=== PATIENT | female | born 1995 | race Caucasian/White ===

== ENCOUNTER 2016-12-25 21:04 | Emergency (ER) | payer OTHER ==
[2016-12-25 21:07] VITALS: RESP 18
[2016-12-25] MEDS ORDERED: KETOROLAC 30 MG/ML 1 ML VIAL IVP STA (21:18)
[2016-12-25] MEDS ORDERED: SODIUM CHLORIDE 0.9% 1,000 ML IV STA (21:18)
[2016-12-25] MEDS ORDERED: diphenhydrAMINE 50 MG/ML 1 ML VIAL IVP STA (21:18)
[2016-12-25] MEDS ORDERED: METOCLOPRAMIDE 5 MG/ML 2 ML VIAL IVP STA (21:18)
[2016-12-25] MEDS ORDERED: ACETAMINOPHEN TAB 500 MG TAB PO STA (21:18)
[2016-12-25] MEDS ORDERED: methylPREDNISolone SOD SUCCI 125 MG/2 ML VIAL IV STA (21:19)
[2016-12-25] MEDS ORDERED: ORPHENADRINE 30 MG/ML 2 ML VIAL IVP STA (21:19)
--- NOTE | 2016-12-25 21:48 | ED ---
Headache HPI - General Chief Complaint: Headache Stated Complaint: Migraine, blurred vision Time Seen by Provider: 12/25/16 21:10 Source: RN notes reviewed, old records reviewed Mode of arrival: ambulatory Limitations: no limitations - History of Present Illness Initial Comments: 21-year-old female presents emergency Department chief complaint of migraine- like headache for the past 2 days. Patient reports she has pain behind both of her eyes. She states that she did wake up of blurry vision but that seems to have subsided at this time, she complains of episodic double vision.. Patient states that she's had history of migraines before. When tip urgent care stay was discharged with Imitrex. She reports she's been taking Imitrex with no help from the migraine. Patient states that she feels nauseated. Headache is worse with bright lights. Denies any pain with extraocular eye movements. Patient states that she is and chilled denies any specific fever. Denies any neck pain. - Related Data Home Medications Medication Instructions Recorded Confirmed SUMAtriptan SUCCINATE [Imitrex] 50 mg PO BID PRN 12/25/16 12/25/16 Sertraline [Zoloft] 50 mg PO HS 12/25/16 12/25/16 Previous Rx's Medication Instructions Recorded Butalb/APAP/Caff 50-325-40Mg 1 tab PO Q4H PRN #12 tablet 12/25/16 [Fioricet 50-325-40] Ondansetron Odt [Zofran Odt] 4 mg PO Q8HR PRN #12 tab 12/25/16 Allergies Allergy/AdvReac Type Severity Reaction Status Date / Time bee venom protein (honey bee) Allergy Facial Verified 12/25/16 21:46 Swelling Review of Systems ROS Statement: Those systems with pertinent positive or pertinent negative responses have been documented in the HPI. ROS Other: All systems not noted in ROS Statement are negative. Past Medical History Past Medical History: Asthma Additional Past Medical History / Comment(s): Obstetric history: First was a vaginal delivery 6 lbs. 7 oz. at 37 weeks. 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 This is her sixth . She's had care with Dr. Thompson since 10 weeks gestation. Her blood type is O+, antibodies negative, rubella immune, hepatitis B negative, RPR nonreactive. She is getting migraines with the was on the uterus that. Normal 1 hour glucose tolerance test. GBS negative. History of Any Multi-Drug Resistant Organisms: None Reported Additional Past Surgical History / Comment(s): leep Past Anesthesia/Blood Transfusion Reactions: No Reported Reaction Past Psychological History: Anxiety, Depression Smoking Status: Never smoker Past Alcohol Use History: None Reported Past Drug Use History: None Reported - Past Family History Father History Unknown: Yes General Exam - General Exam Comments Initial Comments: 21-year-old female. No acute distress. Limitations: no limitations General appearance: alert, in no apparent distress Head exam: Present: atraumatic, normocephalic, normal inspection Eye exam: Present: normal appearance, PERRL, EOMI. Absent: scleral icterus, conjunctival injection, periorbital swelling ENT exam: Present: normal exam, mucous membranes moist Neck exam: Present: normal inspection. Absent: tenderness, meningismus, lymphadenopathy Respiratory exam: Present: normal lung sounds bilaterally. Absent: respiratory distress, wheezes, rales, rhonchi, stridor Cardiovascular Exam: Present: regular rate, normal rhythm, normal heart sounds. Absent: systolic murmur, diastolic murmur, rubs, gallop, clicks GI/Abdominal exam: Present: soft, normal bowel sounds. Absent: distended, tenderness, guarding, rebound, rigid Extremities exam: Present: normal inspection, full ROM, normal capillary refill. Absent: tenderness, pedal edema, joint swelling, calf tenderness Back exam: Present: normal inspection Neurological exam: Present: alert, oriented X3, CN II-XII intact Psychiatric exam: Present: normal affect, normal mood Skin exam: Present: warm, dry, intact, normal color. Absent: rash Course Vital Signs 12/25/16 12/25/16 21:05 23:59 Temperature 98.6 F 97.1 F L Pulse Rate 70 55 L Respiratory 18 18 Rate Blood Pressure 118/72 108/58 O2 Sat by Pulse 97 97 Oximetry - Reevaluation(s) Reevaluation #1: 12/25/16 22:17 Patient was reevaluated at time. She reports her headache is diminished at all. CT will be ordered. Medical Decision Making - Medical Decision Making 21-year-old female presents emergency Department chief complaint of migraine- like headache for the past 2 days. Patient reports she has pain behind both of her eyes. She states that she did wake up of blurry vision but that seems to have subsided at this time, she complains of episodic double vision.. Patient states that she's had history of migraines before. This time patient is neurologically intact. Patient has full range of motion without jugular eye movements. Visual acuity is 20/25 in bilateral eyes. Patient was given IV fluids, and Norflex, Toradol, Tylenol, Solu-Medrol and Benadryl. Patient had very little improvement of her headache. At times CT brain with and without contrast was completed. There is no significant maladies no changes noted of bilateral orbits. At this time patient will be discharged with a prescription for Fioricet. Discussed that she can also obtain Fiorecet and Imitrex. Discussed if the headache continues to persist or worsen she should return to the emergency department. Patient is given a note for work. Return parameters were discussed. - Lab Data Result diagrams: 12/25/16 21:40 12/25/16 21:40 Lab Results 12/25/16 12/25/16 12/25/16 Range/Units 21:40 21:40 21:40 WBC 4.2 (3.8-10.6) k/uL RBC 4.72 (3.80-5.40) m/uL Hgb 14.0 (11.4-16.0) gm/dL Hct 42.1 (34.0-46.0) % MCV 89.2 (80.0-100.0) fL MCH 29.7 (25.0-35.0) pg MCHC 33.4 (31.0-37.0) g/dL RDW 12.2 (11.5-15.5) % Plt Count 125 L (150-450) k/uL Neutrophils % 58 % Lymphocytes % 32 % Monocytes % 6 % Eosinophils % 1 % Basophils % 0 % Neutrophils # 2.5 (1.3-7.7) k/uL Lymphocytes # 1.4 (1.0-4.8) k/uL Monocytes # 0.3 (0-1.0) k/uL Eosinophils # 0.0 (0-0.7) k/uL Basophils # 0.0 (0-0.2) k/uL Sodium 139 (137-145) mmol/L Potassium 4.0 (3.5-5.1) mmol/L Chloride 107 (98-107) mmol/L Carbon Dioxide 21 L (22-30) mmol/L Anion Gap 11 mmol/L BUN 15 (7-17) mg/dL Creatinine 0.90 (0.52-1.04) mg/dL Est GFR (MDRD) Af Amer >60 (>60 ml/min/1.73 sqM) Est GFR (MDRD) Non-Af >60 (>60 ml/min/1.73 sqM) Glucose 90 (74-99) mg/dL Calcium 9.4 (8.4-10.2) mg/dL HCG, Qual Not Detected - Radiology Data Radiology results: report reviewed Normal CT of the brain. No overt changes compared on exam. Disposition Clinical Impression: Migraine with aura Disposition: HOME SELF-CARE Condition: Good Instructions: Acute Headache (ED) Additional Instructions: Patient advised to follow-up with primary care provider. Take pain medicine as well as Imitrex as prescribed. Return to the emergency department if any alarming signs or symptoms occur. Recommend follow-up with neurology as well. Prescriptions: Butalb/APAP/Caff 50-325-40Mg [Fioricet 50-325-40] 1 tab PO Q4H PRN #12 tablet PRN Reason: Migraine Headache Ondansetron Odt [Zofran Odt] 4 mg PO Q8HR PRN #12 tab PRN Reason: Nausea Referrals: Sudha Muro MD [Primary Care Provider] - 1-2 days Time of Disposition: 23:42
[2016-12-25 22:10] LABS: Basophils % (A) 0 %; CH 29.3; Eosinophils % (A) 1 %; HCT 42.1 % (34.0-46.0); HDW 2.39; Luc # (Auto) 0.11; Luc % (Auto) 3; Lymphocytes # (A) 1.4 k/uL (1.0-4.8); Lymphocytes % (A) 32 %; MCH 29.7 pg (25.0-35.0); MCHC 33.4 g/dL (31.0-37.0); MCV 89.2 fL (80.0-100.0); Monocytes # (A) 0.3 k/uL (0-1.0); Monocytes % (A) 6 %; Neutrophils # (A) 2.5 k/uL (1.3-7.7); Neutrophils % (A) 58 %; RBC 4.72 m/uL (3.80-5.40); RDW 12.2 % (11.5-15.5); WBC 4.2 k/uL (3.8-10.6); WBC (Perox) 4.14
[2016-12-25 22:15] LABS: Anion Gap 11 mmol/L; Blood Urea Nitrogen 15 mg/dL (7-17); Calcium 9.4 mg/dL (8.4-10.2); Carbon Dioxide 21 mmol/L (22-30); Chloride 107 mmol/L (98-107); Glucose 90 mg/dL (74-99); Non-African American GFR(MDRD) >60 (>60 ml/min/1.73 sqM); Sodium 139 mmol/L (137-145)
[2016-12-25] MEDS ORDERED: RX INFO: IV CONTRAST WAS GIVEN 1 EACH MISC MISCELLANE PRN (22:17)
--- NOTE | 2016-12-25 22:55 | CT ---
EXAMINATION TYPE: CT brain wo/w con DATE OF EXAM: 12/25/2016 COMPARISON: NONE HISTORY: History of migraines. Migraine today with blurred vision. CT DLP: 2017.70 mGycm Automated Exposure Control for Dose Reduction was Utilized. TECHNIQUE: CT scan of the head is performed with IV contrast.,CT scan of the head is performed withou t and with without and with IV Contrast, patient injected with 100 mL of Omnipaque 300. COMPARISON: 07/12/2013 FINDINGS: The ventricles have normal size. There is no mass effect nor midline shift. There is no si gn of intracranial hemorrhage. The calvarium is intact. I see no pathologic enhancement. CONCLUSION: Normal CT scan of the brain. No adverse change compared to old exam.
[2016-12-25] MEDS ORDERED: MORPHINE SULFATE 2 MG/ML SYRINGE IVP ONE (23:28)
[2016-12-26] VITALS: BP 108/58; PULSE 55; TEMP 97.1
== END 2016-12-26 | disposition home or self-care (01) ==
LOC: EC 21:04
DX: G43.109 Migraine with aura, not intractable, without status migrainosus (principal); F32.9 Major depressive disorder, single episode, unspecified; F41.9 Anxiety disorder, unspecified; Z79.899 Other long term (current) drug therapy; Z91.030 Bee allergy status
CPT/HCPCS: 96375 ×6; 96361 ×3; 96374 ×2; 99284 ×2; 36415; 80048; 85025; 84703; 70470; J1200; J2360; J2765; J2930; J1885; J2270; Q9967

== ENCOUNTER → 2017-07-30 | Outpatient (CLI) | payer OTHER ==
--- NOTE | 2017-07-30 12:56 | CT ---
EXAMINATION TYPE: CT soft tissue neck w con DATE OF EXAM: 07/30/2017 12:39 PM COMPARISON: NONE HISTORY: Dysphagia and Pharyngitis CT DLP: 293.10 mGycm Automated exposure control for dose reduction was used. CONTRAST: CT scan of the neck is performed following with IV Contrast, patient injected with 100 ml mL of Isovu e 300. Axial images are obtained, coronal and sagittal reformatted images are reviewed. FINDINGS: Airway: No gross abnormality seen. Some mild prominence of the adenoidal soft tissues suspected. Parotid/submandibular glands: No gross abnormality seen. Carotid/Vascular Structures: Patent Osseous Structures: No significant abnormality. Other: No significant subcutaneous edema. No evident abscess. IMPRESSION: Nonspecific findings described above.
== END | disposition home or self-care (01) ==
LOC: RADCTMAIN 11:24
PROVIDERS: ATTEND Family Medicine
DX: R13.13 Dysphagia, pharyngeal phase (principal); J02.9 Acute pharyngitis, unspecified
CPT/HCPCS: 70491; Q9967

== ENCOUNTER 2017-08-01 09:57 | Emergency (ER) | payer OTHER ==
--- NOTE | 2017-08-01 11:57 | ED ---
General Adult HPI - General Chief complaint: ENT Stated complaint: Sore throat Source: patient, RN notes reviewed, old records reviewed Mode of arrival: ambulatory Limitations: no limitations - History of Present Illness Initial comments: A 21-year-old female the ER for evaluation of sore throat pain with swallowing. Patient has no specific medical history she is concern for thyroid disease. has symptoms of painful swallowing, sore throat 2 weeks. She has had outpatient CAT scan which she states was unremarkable. She was given antibiotic which did not help. Patient continues remain with sore throat and difficulty swallowing. No fevers or if patient states she is able to eat but again when she does swallow it is painful - Related Data Home Medications Medication Instructions Recorded Confirmed Sertraline [Zoloft] 100 mg PO HS 08/01/17 08/01/17 Topiramate [Topamax] 25 mg PO HS 08/01/17 08/01/17 Allergies Allergy/AdvReac Type Severity Reaction Status Date / Time bee venom protein (honey bee) Allergy Facial Verified 08/01/17 10:09 Swelling Review of Systems ROS Statement: Those systems with pertinent positive or pertinent negative responses have been documented in the HPI. ROS Other: All systems not noted in ROS Statement are negative. Past Medical History Past Medical History: Asthma Additional Past Medical History / Comment(s): Obstetric history: First was a vaginal delivery 6 lbs. 7 oz. at 37 weeks. 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 This is her sixth . She's had care with Dr. Thompson since 10 weeks gestation. Her blood type is O+, antibodies negative, rubella immune, hepatitis B negative, RPR nonreactive. She is getting migraines with the was on the uterus that. Normal 1 hour glucose tolerance test. GBS negative. History of Any Multi-Drug Resistant Organisms: None Reported Additional Past Surgical History / Comment(s): leep Past Anesthesia/Blood Transfusion Reactions: No Reported Reaction Past Psychological History: Anxiety, Depression Smoking Status: Never smoker Past Alcohol Use History: None Reported Past Drug Use History: None Reported - Past Family History Father History Unknown: Yes General Exam Limitations: no limitations General appearance: alert, in no apparent distress Head exam: Present: atraumatic, normocephalic, normal inspection Eye exam: Present: normal appearance, PERRL, EOMI. Absent: scleral icterus, conjunctival injection, periorbital swelling ENT exam: Present: normal exam, mucous membranes moist Neck exam: Present: normal inspection. Absent: tenderness, meningismus, lymphadenopathy Respiratory exam: Present: normal lung sounds bilaterally. Absent: respiratory distress, wheezes, rales, rhonchi, stridor Cardiovascular Exam: Present: regular rate, normal rhythm, normal heart sounds. Absent: systolic murmur, diastolic murmur, rubs, gallop, clicks GI/Abdominal exam: Present: soft, normal bowel sounds. Absent: distended, tenderness, guarding, rebound, rigid Extremities exam: Present: normal inspection, full ROM, normal capillary refill. Absent: tenderness, pedal edema, joint swelling, calf tenderness Back exam: Present: normal inspection Neurological exam: Present: alert, oriented X3, CN II-XII intact Psychiatric exam: Present: normal affect, normal mood Skin exam: Present: warm, dry, intact, normal color. Absent: rash Course Vital Signs 08/01/17 08/01/17 09:59 14:02 Temperature 97.1 F L 98.1 F Pulse Rate 88 74 Respiratory 20 18 Rate Blood Pressure 116/72 113/66 O2 Sat by Pulse 98 98 Oximetry - Reevaluation(s) Reevaluation #1: 08/01/17 11:57 Prior CAT scan of the throat is reviewed Medical Decision Making - Medical Decision Making 21 female the ER for evaluation, negative results here in the ER, patient was concerned thyroid thyroid is negative, barium swallow is negative patient outpatient computed tomography scan is also negative, will follow-up with GI - Lab Data Result diagrams: 08/01/17 11:55 08/01/17 11:55 Lab Results 08/01/17 08/01/17 08/01/17 Range/Units 11:55 11:55 11:55 WBC 2.1 L (3.8-10.6) k/uL RBC 4.46 (3.80-5.40) m/uL Hgb 12.9 (11.4-16.0) gm/dL Hct 36.9 (34.0-46.0) % MCV 82.6 (80.0-100.0) fL MCH 28.9 (25.0-35.0) pg MCHC 35.0 (31.0-37.0) g/dL RDW 12.4 (11.5-15.5) % Plt Count 117 L (150-450) k/uL Neutrophils % (Manual) 30 % Band Neutrophils % 1 % Lymphocytes % (Manual) 55 % Monocytes % (Manual) 14 % Eosinophils % (Manual) 1 % Neutrophils # (Manual) 0.60 L (1.3-7.7) k/uL Lymphocytes # (Manual) 1.16 (1.0-4.8) k/uL Monocytes # (Manual) 0.29 (0-1.0) k/uL Eosinophils # (Manual) 0.02 (0-0.7) k/uL Nucleated RBCs 0 (0-0) /100 WBC Manual Slide Review Performed RBC Morphology Normal Sodium 144 (137-145) mmol/L Potassium 4.2 (3.5-5.1) mmol/L Chloride 108 H (98-107) mmol/L Carbon Dioxide 23 (22-30) mmol/L Anion Gap 13 mmol/L BUN 12 (7-17) mg/dL Creatinine 0.70 (0.52-1.04) mg/dL Est GFR (CKD-EPI)AfAm >90 (>60 ml/min/1.73 sqM) Est GFR (CKD-EPI)NonAf >90 (>60 ml/min/1.73 sqM) Glucose 97 (74-99) mg/dL Calcium 9.5 (8.4-10.2) mg/dL Phosphorus 3.3 (2.5-4.5) mg/dL Magnesium 1.8 (1.6-2.3) mg/dL Total Bilirubin 0.5 (0.2-1.3) mg/dL AST 21 (14-36) U/L ALT 23 (9-52) U/L Alkaline Phosphatase 40 (38-126) U/L Total Protein 6.4 (6.3-8.2) g/dL Albumin 3.9 (3.5-5.0) g/dL TSH (0.465-4.680) mIU/L Urine Color Yellow Urine Appearance Clear (Clear) Urine pH 7.5 (5.0-8.0) Ur Specific [place] 1.011 (1.001-1.035) Urine Protein Negative (Negative) Urine Glucose (UA) Negative (Negative) Urine Ketones Negative (Negative) Urine Blood Negative (Negative) Urine Nitrite Negative (Negative) Urine Bilirubin Negative (Negative) Urine Urobilinogen 2.0 (<2.0) mg/dL Ur Leukocyte Esterase Moderate H (Negative) Urine RBC 1 (0-5) /hpf Urine WBC 16 H (0-5) /hpf Ur Squamous Epith Cells 4 (0-4) /hpf Urine Bacteria Occasional H (None) /hpf Urine Mucus Rare H (None) /hpf Urine HCG, Qual (Not Detectd) 08/01/17 08/01/17 Range/Units 11:55 11:55 WBC (3.8-10.6) k/uL RBC (3.80-5.40) m/uL Hgb (11.4-16.0) gm/dL Hct (34.0-46.0) % MCV (80.0-100.0) fL MCH (25.0-35.0) pg MCHC (31.0-37.0) g/dL RDW (11.5-15.5) % Plt Count (150-450) k/uL Neutrophils % (Manual) % Band Neutrophils % % Lymphocytes % (Manual) % Monocytes % (Manual) % Eosinophils % (Manual) % Neutrophils # (Manual) (1.3-7.7) k/uL Lymphocytes # (Manual) (1.0-4.8) k/uL Monocytes # (Manual) (0-1.0) k/uL Eosinophils # (Manual) (0-0.7) k/uL Nucleated RBCs (0-0) /100 WBC Manual Slide Review RBC Morphology Sodium (137-145) mmol/L Potassium (3.5-5.1) mmol/L Chloride (98-107) mmol/L Carbon Dioxide (22-30) mmol/L Anion Gap mmol/L BUN (7-17) mg/dL Creatinine (0.52-1.04) mg/dL Est GFR (CKD-EPI)AfAm (>60 ml/min/1.73 sqM) Est GFR (CKD-EPI)NonAf (>60 ml/min/1.73 sqM) Glucose (74-99) mg/dL Calcium (8.4-10.2) mg/dL Phosphorus (2.5-4.5) mg/dL Magnesium (1.6-2.3) mg/dL Total Bilirubin (0.2-1.3) mg/dL AST (14-36) U/L ALT (9-52) U/L Alkaline Phosphatase (38-126) U/L Total Protein (6.3-8.2) g/dL Albumin (3.5-5.0) g/dL TSH 1.310 (0.465-4.680) mIU/L Urine Color Urine Appearance (Clear) Urine pH (5.0-8.0) Ur Specific [place] (1.001-1.035) Urine Protein (Negative) Urine Glucose (UA) (Negative) Urine Ketones (Negative) Urine Blood (Negative) Urine Nitrite (Negative) Urine Bilirubin (Negative) Urine Urobilinogen (<2.0) mg/dL Ur Leukocyte Esterase (Negative) Urine RBC (0-5) /hpf Urine WBC (0-5) /hpf Ur Squamous Epith Cells (0-4) /hpf Urine Bacteria (None) /hpf Urine Mucus (None) /hpf Urine HCG, Qual Not Detected (Not Detectd) - Radiology Data Radiology results: report reviewed (Barium Swallow negative), image reviewed Disposition Clinical Impression: Dysphagia Disposition: HOME SELF-CARE Condition: Good Instructions: Dysphagia (ED) Is patient prescribed a controlled substance at d/c from ED?: No Referrals: Sudha Muro MD [Primary Care Provider] - 1-2 days Yaw Valdes MD [STAFF PHYSICIAN] - 1-2 days
[2017-08-01 12:23] LABS: ALT 23 U/L (9-52); AST 21 U/L (14-36); Albumin 3.9 g/dL (3.5-5.0); Alkaline Phosphatase 40 U/L (38-126); Anion Gap 13 mmol/L; Blood Urea Nitrogen 12 mg/dL (7-17); Calcium 9.5 mg/dL (8.4-10.2); Carbon Dioxide 23 mmol/L (22-30); Chloride 108 mmol/L (98-107); Glucose 97 mg/dL (74-99); Magnesium 1.8 mg/dL (1.6-2.3); Phosphorus 3.3 mg/dL (2.5-4.5); Potassium 4.2 mmol/L (3.5-5.1); Sodium 144 mmol/L (137-145); Total Bilirubin 0.5 mg/dL (0.2-1.3); Total Protein 6.4 g/dL (6.3-8.2)
[2017-08-01 12:26] LABS: Appearance,Urine Clear (Clear); Bacteria,Urine Occasional /hpf; Bilirubin,Urine Negative (Negative); Blood,Urine Negative (Negative); Color,Urine Yellow; Glucose,Urine (UA) Negative (Negative); Ketones,Urine Negative (Negative); Leukocyte Esterase,Urine Moderate (Negative); Mucus,Urine Rare /hpf; Nitrite,Urine Negative (Negative); PH, Urine 7.5 (5.0-8.0); Protein,Urine Negative (Negative); RBC,Urine 1 /hpf (0-5); Specific Gravity,Urine 1.011 (1.001-1.035); Squamous Epithelial Cell,Urine 4 /hpf (0-4); WBC,Urine 16 /hpf (0-5)
[2017-08-01 12:31] LABS: HCT 36.9 % (34.0-46.0); HGB 12.9 gm/dL (11.4-16.0); MCH 28.9 pg (25.0-35.0); MCV 82.6 fL (80.0-100.0); Mean Platelet Volume 7.8; Platelet Count 117 k/uL (150-450); RBC 4.46 m/uL (3.80-5.40); RDW 12.4 % (11.5-15.5)
[2017-08-01 12:43] LABS: WBC 2.1 k/uL (3.8-10.6)
--- NOTE | 2017-08-01 12:53 | XR ---
EXAMINATION TYPE: XR chest 2V DATE OF EXAM: 08/01/2017 COMPARISON: NONE HISTORY: Sore throat and weakness. TECHNIQUE: Frontal and lateral views of the chest are obtained. FINDINGS: There is no focal air space opacity, pleural effusion, or pneumothorax seen. The cardiac silhouette size is within normal limits. The osseous structures are intact. IMPRESSION: No acute cardiopulmonary process.
[2017-08-01 13:02] LABS: Band Neutrophils % 1 %; Eosinophils # (M) 0.02 k/uL (0-0.7); Lymphocytes # (M) 1.16 k/uL (1.0-4.8); Monocytes # (M) 0.29 k/uL (0-1.0); Neutrophils % (M) 30 %; Nucleated Red Blood Cells 0 /100 WBC (0-0); Total Cells Counted 200
--- NOTE | 2017-08-01 13:38 | FL ---
EXAMINATION TYPE: FL barium swallow DATE OF EXAM: 08/01/2017 CLINICAL HISTORY: Dysphasia TECHNIQUE: A double contrast esophagram is performed utilizing air and barium. A total of 62 second s of fluoroscopic time was utilized during procedure. 30 images are obtained. COMPARISON: None FINDINGS: The esophagus shows normal motility and emptying into the stomach. No evidence of hiatal h ernia or stricture noted. No significant gastroesophageal reflux was seen during real time performanc e of this study. IMPRESSION: No significant abnormality is seen to account for patient's symptoms. If symptoms persi st recommend direct visualization.
[2017-08-01 14:03] VITALS: BP 113/66; PULSE 74; RESP 18; TEMP 98.1
--- NOTE | 2017-08-02 06:07 | CDI ---
Dear Denys Polo DO: Please do addendum whether the patient is currently as in Pat Medical History given that "This is her sixth ". Thank you, Jesus Saldaña, Commercial Instructor Supervisor. If you have any questions, please contact Ssrs Report Developer at [phone]. [facility]
== END 2017-08-01 14:28 | disposition home or self-care (01) ==
LOC: EC 09:57
DX: R13.10 Dysphagia, unspecified (principal); J02.9 Acute pharyngitis, unspecified; F32.9 Major depressive disorder, single episode, unspecified; F41.9 Anxiety disorder, unspecified; Z79.899 Other long term (current) drug therapy; Z88.8 Allergy status to other drugs, medicaments and biological substances
CPT/HCPCS: 36415; 71046; 74220; 80053; 81001; 81025; 83735; 84100; 84443; 85025; 87086; 99284

== ENCOUNTER → 2018-04-02 | Outpatient (CLI) | payer OTHER | END | disposition home or self-care (01) | LOC: LABWHC1 09:09 | PROVIDERS: ATTEND Physician Assistant | DX: O99.89 Other specified diseases and conditions complicating pregnancy, childbirth and the puerperium (principal); Z3A.00 Weeks of gestation of pregnancy not specified | CPT/HCPCS: 36415; 84702 ==

== ENCOUNTER 2018-04-16 14:45 | Emergency (ER) | payer OTHER ==
[2018-04-16] MEDS ORDERED: METOCLOPRAMIDE 5 MG/ML 2 ML VIAL IVP STA (15:00)
[2018-04-16] MEDS ORDERED: SODIUM CHLORIDE 0.9% 2,000 ML IV STA (15:00)
[2018-04-16 15:42] LABS: Basophils % (A) 0 %; Eosinophils # (A) 0.1 k/uL (0-0.7); Eosinophils % (A) 1 %; HCT 39.3 % (34.0-46.0); HGB 13.2 gm/dL (11.4-16.0); Lymphocytes # (A) 1.3 k/uL (1.0-4.8); Lymphocytes % (A) 25 %; MCH 28.4 pg (25.0-35.0); MCHC 33.7 g/dL (31.0-37.0); MCV 84.1 fL (80.0-100.0); Mean Platelet Volume 8.3; Monocytes # (A) 0.3 k/uL (0-1.0); Monocytes % (A) 6 %; Neutrophils # (A) 3.3 k/uL (1.3-7.7); Neutrophils % (A) 66 %; Platelet Count 132 k/uL (150-450); RBC 4.67 m/uL (3.80-5.40); RDW 12.2 % (11.5-15.5)
[2018-04-16 15:44] LABS: Appearance,Urine Cloudy (Clear); Bacteria,Urine Rare /hpf; Bilirubin,Urine Negative (Negative); Blood,Urine Negative (Negative); Color,Urine Yellow; Glucose,Urine (UA) Negative (Negative); Ketones,Urine Negative (Negative); Leukocyte Esterase,Urine Large (Negative); Mucus,Urine Occasional /hpf; Nitrite,Urine Negative (Negative); PH, Urine 6.5 (5.0-8.0); Protein,Urine Trace (Negative); Specific Gravity,Urine 1.022 (1.001-1.035); Squamous Epithelial Cell,Urine 16 /hpf (0-4); WBC,Urine 20 /hpf (0-5)
[2018-04-16 15:58] LABS: ALT 23 U/L (9-52); AST 19 U/L (14-36); Albumin 4.1 g/dL (3.5-5.0); Alkaline Phosphatase 33 U/L (38-126); Anion Gap 7 mmol/L; Blood Urea Nitrogen 16 mg/dL (7-17); Calcium 8.8 mg/dL (8.4-10.2); Carbon Dioxide 22 mmol/L (22-30); Chloride 107 mmol/L (98-107); Glucose 107 mg/dL (74-99); Lipase 70 U/L (23-300); Sodium 136 mmol/L (137-145); Total Bilirubin 0.4 mg/dL (0.2-1.3); Total Protein 6.7 g/dL (6.3-8.2)
--- NOTE | 2018-04-16 16:52 | US ---
EXAMINATION TYPE: Transabdominal DATE OF EXAM: 06/18/17 COMPARISON: US CLINICAL HISTORY: Pain. Pt states pain, denies bleeding EXAM PERFORMED: Transabdominal (TA) EXAM MEASUREMENTS: GESTATIONAL AGE / DATING Physician Established: Not yet established Dates by LMP: (7 weeks/6 days) EDC: 11/27/2018 Dates by First Scan: (7 weeks/6 days) EDC: 11/27/2018 Dates by Current Scan for: (6 weeks/6 days) EDC: 12/04/2018 MATERNAL ANATOMY Uterus: 8.8 x 6.1 x 7.1 cm Right Ovary: 5.4 x 3.2 x 3.7 cm Left Ovary: 2.6 x 1.7 x 2.4 cm Post CDS / Adnexa: wnl Presence of free fluid: No Presence of corpus luteal cyst: Right Ovary= 3.1 x 3.2 x 3.1 cm Presence of subchorionic bleed: No GESTATION / SURVEY CRL: 0.9 cm (6 weeks/6 days) MSD: wnl Yolk Sac (normal less than 6mm): 2mm Heart Rate: 140 bpm Rhythm: Normal IUP: Viable IUP Single, viable IUP/ No abnormality visualized at this time IMPRESSION: No complicating process seen.
--- NOTE | 2018-04-16 17:21 | ED ---
Nausea/Vomiting/Diarrhea HPI - General Chief complaint: Nausea/Vomiting/Diarrhea Stated complaint: abdominal pain/8 wks preg Time Seen by Provider: 04/16/18 15:00 Source: patient, RN notes reviewed Mode of arrival: ambulatory Limitations: no limitations - History of Present Illness Initial comments: 22-year-old female presents emergency Department with chief complaint of nausea vomiting. Patient states that she is A4. Patient states that she's had continuation of nausea vomiting throughout her early . She believes that she's around 7 weeks . Patient states her RN DIABETES is Dr. Thompson. Patient denies any vaginal bleeding or vaginal discharge. She does have mild cramping lower pelvic region. No fever no chills. Patient denies any current dysuria or hematuria. - Related Data Home Medications Medication Instructions Recorded Confirmed Cranberry Fruit Concentrate 450 mg PO DAILY 03/31/18 04/16/18 [Cranberry] Multivitamins, Thera [Multivitamin 1 tab PO DAILY 03/31/18 04/16/18 (formulary)] Metoclopramide [Reglan] 10 mg PO TID PRN 04/16/18 04/16/18 Allergies Allergy/AdvReac Type Severity Reaction Status Date / Time bee venom protein (honey bee) Allergy Anaphylaxis Verified 04/16/18 16:10 Review of Systems ROS Statement: Those systems with pertinent positive or pertinent negative responses have been documented in the HPI. ROS Other: All systems not noted in ROS Statement are negative. Past Medical History Past Medical History: Asthma Additional Past Medical History / Comment(s): Obstetric history: First was a vaginal delivery 6 lbs. 7 oz. at 37 weeks. 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 This is her sixth . She's had care with Dr. Thompson since 10 weeks gestation. Her blood type is O+, antibodies negative, rubella immune, hepatitis B negative, RPR nonreactive. She is getting migraines with the was on the uterus that. Normal 1 hour glucose tolerance test. GBS negative. History of Any Multi-Drug Resistant Organisms: None Reported Additional Past Surgical History / Comment(s): leep Past Anesthesia/Blood Transfusion Reactions: No Reported Reaction Past Psychological History: Anxiety, Depression Smoking Status: Never smoker Past Alcohol Use History: None Reported Past Drug Use History: None Reported - Past Family History Father History Unknown: Yes General Exam Limitations: no limitations General appearance: alert, in no apparent distress Head exam: Present: atraumatic, normocephalic, normal inspection Eye exam: Present: normal appearance, PERRL, EOMI. Absent: scleral icterus, conjunctival injection, periorbital swelling ENT exam: Present: normal exam, normal oropharynx, mucous membranes moist Neck exam: Present: normal inspection. Absent: tenderness, meningismus, lymphadenopathy Respiratory exam: Present: normal lung sounds bilaterally. Absent: respiratory distress, wheezes, rales, rhonchi, stridor Cardiovascular Exam: Present: regular rate, normal rhythm, normal heart sounds. Absent: systolic murmur, diastolic murmur, rubs, gallop, clicks GI/Abdominal exam: Present: soft, normal bowel sounds. Absent: distended, tenderness, guarding, rebound, rigid Back exam: Absent: CVA tenderness (R), CVA tenderness (L) Course Vital Signs 04/16/18 14:50 Temperature 98.1 F Pulse Rate 96 Respiratory 16 Rate Blood Pressure 120/75 O2 Sat by Pulse 100 Oximetry Medical Decision Making - Medical Decision Making 22-year-old female presented from for nausea vomiting early . She was hydrated. Ultram and was ordered secondary to prior ultrasound showing no IUP. She does have single viable IUP at 6 weeks and 6 days. Patient be discharged as follow-up with RN DIABETES return for any worsening symptoms. - Lab Data Result diagrams: 04/16/18 15:20 04/16/18 15:20 Lab Results 04/16/18 04/16/18 04/16/18 Range/Units 15:20 15:20 15:20 WBC 5.0 (3.8-10.6) k/uL RBC 4.67 (3.80-5.40) m/uL Hgb 13.2 (11.4-16.0) gm/dL Hct 39.3 (34.0-46.0) % MCV 84.1 (80.0-100.0) fL MCH 28.4 (25.0-35.0) pg MCHC 33.7 (31.0-37.0) g/dL RDW 12.2 (11.5-15.5) % Plt Count 132 L (150-450) k/uL Neutrophils % 66 % Lymphocytes % 25 % Monocytes % 6 % Eosinophils % 1 % Basophils % 0 % Neutrophils # 3.3 (1.3-7.7) k/uL Lymphocytes # 1.3 (1.0-4.8) k/uL Monocytes # 0.3 (0-1.0) k/uL Eosinophils # 0.1 (0-0.7) k/uL Basophils # 0.0 (0-0.2) k/uL Sodium 136 L (137-145) mmol/L Potassium 4.0 (3.5-5.1) mmol/L Chloride 107 (98-107) mmol/L Carbon Dioxide 22 (22-30) mmol/L Anion Gap 7 mmol/L BUN 16 (7-17) mg/dL Creatinine 0.55 (0.52-1.04) mg/dL Est GFR (CKD-EPI)AfAm >90 (>60 ml/min/1.73 sqM) Est GFR (CKD-EPI)NonAf >90 (>60 ml/min/1.73 sqM) Glucose 107 H (74-99) mg/dL Calcium 8.8 (8.4-10.2) mg/dL Total Bilirubin 0.4 (0.2-1.3) mg/dL AST 19 (14-36) U/L ALT 23 (9-52) U/L Alkaline Phosphatase 33 L (38-126) U/L Total Protein 6.7 (6.3-8.2) g/dL Albumin 4.1 (3.5-5.0) g/dL Lipase 70 (23-300) U/L Urine Color Yellow Urine Appearance Cloudy H (Clear) Urine pH 6.5 (5.0-8.0) Ur Specific [place] 1.022 (1.001-1.035) Urine Protein Trace H (Negative) Urine Glucose (UA) Negative (Negative) Urine Ketones Negative (Negative) Urine Blood Negative (Negative) Urine Nitrite Negative (Negative) Urine Bilirubin Negative (Negative) Urine Urobilinogen 2.0 (<2.0) mg/dL Ur Leukocyte Esterase Large H (Negative) Urine WBC 20 H (0-5) /hpf Ur Squamous Epith Cells 16 H (0-4) /hpf Urine Bacteria Rare H (None) /hpf Urine Mucus Occasional H (None) /hpf Disposition Clinical Impression: Nausea/vomiting in Disposition: HOME SELF-CARE Condition: Stable Instructions (If sedation given, give patient instructions): Acute Nausea and Vomiting (ED) Additional Instructions: Please return to the Emergency Department if symptoms worsen or any other concerns. Is patient prescribed a controlled substance at d/c from ED?: No Referrals: None,Stated [Primary Care Provider] - 1-2 days Time of Disposition: 17:20
[2018-04-16 17:57] VITALS: BP 120/84; PULSE 75; RESP 18; TEMP 97.8
== END 2018-04-16 17:56 | disposition home or self-care (01) ==
LOC: EC 14:45
DX: O21.9 Vomiting of pregnancy, unspecified (principal); O99.89 Other specified diseases and conditions complicating pregnancy, childbirth and the puerperium; R10.2 Pelvic and perineal pain; Z67.40 Type O blood, Rh positive; Z91.018 Allergy to other foods; Z98.890 Other specified postprocedural states; Z3A.01 Less than 8 weeks gestation of pregnancy
CPT/HCPCS: 36415; 80053; 83690; 85025; 81001; 84702; 87086; 76801; 99284; 96374; 96361 ×3; J2765

== ENCOUNTER → 2018-04-29 | Outpatient (CLI) | payer OTHER ==
--- NOTE | 2018-04-29 12:00 | US ---
EXAMINATION TYPE: Ultrasound OB <= 14 week fetus DATE OF EXAM: 04/29/2018 COMPARISON: 04/16/2018 CLINICAL HISTORY: 22-year-old female Z36. Confirm Dates. Dates EXAM PERFORMED: Transabdominal (TA) FINDINGS: EXAM MEASUREMENTS: GESTATIONAL AGE / DATING Dates by LMP: ( 9 weeks/5 days) EDC: 11/27/2018 EDC by prior scan performed on 04/16/2018: 12/04/2018 Dates by Current Scan for: ( 8 weeks/5 days) EDC: 12/04/2018 MATERNAL ANATOMY Uterus: 10.2 x 7.3 x 6.5 cm Right Ovary: 5.6 x 3.1 x 3.2 cm Left Ovary: 2.5 x 1.6 x 1.3 cm Post CDS / Adnexa: no free fluid Presence of free fluid: no Presence of corpus luteal cyst: Right ovarian cystic appearing lesion seen - 3.5 x 3.5 x 3.1 cm Presence of subchorionic bleed: no GESTATION / SURVEY CRL: 2.0 cm (8 weeks/5 days) MSD: seen, not measured Yolk Sac (normal less than 6mm): 2.9 mm Heart Rate: 174 bpm, upper limits of normal Rhythm: Normal IUP: Viable IUP Date of LMP: 02/20/2018, Beta HcG (if available): Not available at this time [employer] Thinner notes: Single live IUP measuring 8 weeks 5 days IMPRESSION: 1. Single live intrauterine with estimated gestational age of 9 weeks 5 days by LMP. Curren t ultrasound biometry is smaller (8 weeks 5 days) with appropriate interval growth from 04/16/2018. 2. A 3.5 cm simple cyst in the right ovary probably represents a corpus luteum, previously measuring 3.2 cm. 3. Given borderline tachycardia (174 bpm), consider short interval follow-up. 4. Otherwise, complete survey recommended at 18-20 weeks.
== END | disposition home or self-care (01) ==
LOC: RADUSWWP 08:51
PROVIDERS: ATTEND Obstetrics & Gynecology
DX: O76 Abnormality in fetal heart rate and rhythm complicating labor and delivery (principal); O34.82 Maternal care for other abnormalities of pelvic organs, second trimester; N83.201 Unspecified ovarian cyst, right side; Z3A.08 8 weeks gestation of pregnancy
CPT/HCPCS: 76801

== ENCOUNTER 2018-05-24 15:53 | Emergency (ER) | payer OTHER ==
[2018-05-24 16:07] VITALS: TEMP 98.2
[2018-05-24] MEDS ORDERED: SODIUM CHLORIDE 0.9% 1,000 ML IV STA (16:57)
[2018-05-24 17:24] LABS: Basophils % (A) 0 %; Eosinophils # (A) 0.1 k/uL (0-0.7); Eosinophils % (A) 1 %; HCT 37.9 % (34.0-46.0); HGB 13.1 gm/dL (11.4-16.0); Lymphocytes # (A) 1.6 k/uL (1.0-4.8); Lymphocytes % (A) 22 %; MCHC 34.5 g/dL (31.0-37.0); MCV 83.8 fL (80.0-100.0); Mean Platelet Volume 7.8; Monocytes # (A) 0.3 k/uL (0-1.0); Monocytes % (A) 4 %; Neutrophils # (A) 5.2 k/uL (1.3-7.7); Neutrophils % (A) 72 %; Platelet Count 142 k/uL (150-450); RBC 4.52 m/uL (3.80-5.40); RDW 13.2 % (11.5-15.5); WBC 7.3 k/uL (3.8-10.6)
[2018-05-24 17:44] LABS: Anion Gap 7 mmol/L; Blood Urea Nitrogen 12 mg/dL (7-17); Calcium 9.4 mg/dL (8.4-10.2); Carbon Dioxide 23 mmol/L (22-30); Chloride 106 mmol/L (98-107); Glucose 83 mg/dL (74-99); Sodium 136 mmol/L (137-145)
--- NOTE | 2018-05-24 17:56 | US ---
EXAMINATION TYPE: US venous doppler duplex LE BI DATE OF EXAM: 05/24/2018 5:43 PM COMPARISON: NONE CLINICAL HISTORY: SOB in , eval for DVT, dizziness SIDE PERFORMED: Bilateral TECHNIQUE: The lower extremity deep venous system is examined utilizing real time linear array sonog true with graded compression, doppler sonography and color-flow sonography. VESSELS IMAGED: Common Femoral Vein Deep Femoral Vein Greater Saphenous Vein * Femoral Vein Popliteal Vein Small Saphenous Vein * Proximal Calf Veins (* superficial vessels) Grayscale, color doppler, spectral doppler imaging performed of the deep veins of the lower extremiti es. There is normal flow, compressibility, vascular waveforms. Right Leg: Negative for DVT Left Leg: Negative for DVT IMPRESSION: No sonographic evidence of deep venous thrombosis within either lower extremity.
--- NOTE | 2018-05-24 18:35 | XR ---
EXAMINATION TYPE: XR chest 2V DATE OF EXAM: 05/24/2018 COMPARISON: 08/01/2017 HISTORY: Fatigue, shortness of breath and lightheadedness TECHNIQUE: Frontal and lateral views of the chest are obtained. FINDINGS: There is no focal air space opacity, pleural effusion, or pneumothorax seen. The cardiac silhouette size is within normal limits. The osseous structures are intact. IMPRESSION: No acute cardiopulmonary process.
[2018-05-24 18:47] LABS: Amorphous Sediment,Urine Occasional /hpf; Appearance,Urine Cloudy (Clear); Bilirubin,Urine Negative (Negative); Blood,Urine Negative (Negative); Color,Urine Yellow; Glucose,Urine (UA) Negative (Negative); Ketones,Urine 2+ (Negative); Leukocyte Esterase,Urine Large (Negative); Mucus,Urine Occasional /hpf; Nitrite,Urine Negative (Negative); PH, Urine 6.5 (5.0-8.0); Protein,Urine Negative (Negative); Specific Gravity,Urine 1.016 (1.001-1.035); Squamous Epithelial Cell,Urine 8 /hpf (0-4); WBC,Urine 74 /hpf (0-5)
--- NOTE | 2018-05-24 18:48 | ED ---
Dizziness HPI - General Chief Complaint: Dizziness Stated Complaint: Dizzy,13wks preg Time Seen by Provider: 05/24/18 16:35 Source: patient Mode of arrival: ambulatory Limitations: no limitations - History of Present Illness Initial Comments: Patient is a 22-year-old female presenting for multiple symptoms. She is 13 weeks and states that [place] the [place], she was having shortness breath, lightheadedness, blurred vision and felt "out of it". She feels like everything went numb and she gets sweaty and couldn't move. She also states that she lost complete control of her body for about 5 minutes. This occurred around noon and she called her OB doctor in the center and for further evaluation. She also states that she had one episode of nausea and vomiting and states that almost all her symptoms are resolved but she has a little bit of residual shortness of breath. - Related Data Home Medications Medication Instructions Recorded Confirmed Cranberry Fruit Concentrate 450 mg PO DAILY 03/31/18 04/16/18 [Cranberry] Multivitamins, Thera [Multivitamin 1 tab PO DAILY 03/31/18 04/16/18 (formulary)] Metoclopramide [Reglan] 10 mg PO TID PRN 04/16/18 04/16/18 Previous Rx's Medication Instructions Recorded Nitrofurantoin Monohyd/M-Cryst 100 mg PO Q12HR #14 cap 04/16/18 [Macrobid] Cephalexin [Keflex] 500 mg PO BID 7 Days #14 cap 05/24/18 Allergies Allergy/AdvReac Type Severity Reaction Status Date / Time bee venom protein (honey bee) Allergy Anaphylaxis Verified 04/16/18 16:10 Review of Systems ROS Statement: Those systems with pertinent positive or pertinent negative responses have been documented in the HPI. ROS Other: All systems not noted in ROS Statement are negative. Past Medical History Past Medical History: Asthma Additional Past Medical History / Comment(s): Obstetric history: First was a vaginal delivery 6 lbs. 7 oz. at 37 weeks. 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 This is her sixth . She's had care with Dr. Thompson since 10 weeks gestation. Her blood type is O+, antibodies negative, rubella immune, hepatitis B negative, RPR nonreactive. She is getting migraines with the was on the uterus that. Normal 1 hour glucose tolerance test. GBS negative. History of Any Multi-Drug Resistant Organisms: None Reported Additional Past Surgical History / Comment(s): leep Past Anesthesia/Blood Transfusion Reactions: No Reported Reaction Past Psychological History: Anxiety, Depression Smoking Status: Never smoker Past Alcohol Use History: None Reported Past Drug Use History: None Reported - Past Family History Father History Unknown: Yes General Exam Limitations: no limitations Course Vital Signs 05/24/18 05/24/18 05/24/18 16:04 18:49 19:20 Temperature 98.2 F Pulse Rate 76 70 Respiratory 18 16 Rate Blood Pressure 116/52 112/68 Blood Pressure 115/66 [Right Arm Sitting] Blood Pressure 109/67 [Right Arm Standing] Blood Pressure 103/66 [Right Arm Supine] O2 Sat by Pulse 99 100 Oximetry EKG Findings - EKG Comments: EKG Findings:: EKG shows normal sinus rhythm of rate of 72 bpm, NE interval 150, QRS 88, QTC 405. There are no significant ST depressions or elevations or T- wave inversions. There is no evidence of S1Q3T3 Medical Decision Making - Medical Decision Making Laboratory studies showed that there was no evidence of significant leukocytosis, electrolyte derangements and orthostatics were negative. Urinalysis was positive for infection therefore the patient was given shifting for Keflex. There were no neurologic deficits or cranial nerve deficits and therefore it was advised that CT of the head was not necessary. Additionally, extensive discussion was had with the patient about the risk of pulmonary embolism and DVT. Ultrasound of the lower show raise were performed and noted to be negative. Risk and benefits of the CT PE study were discussed and patient kindly elected to decline the CT PE study. Results were discussed with [employer] as well, Dr. Bueno, and all parties were agreeable to the patient being followed up on an outpatient basis. Patient was also advised to return to the emergency department if the shortness of breath worsen. - Lab Data Result diagrams: 05/24/18 17:14 05/24/18 17:14 Lab Results 05/24/18 05/24/18 05/24/18 Range/Units 17:14 17:14 18:29 WBC 7.3 (3.8-10.6) k/uL RBC 4.52 (3.80-5.40) m/uL Hgb 13.1 (11.4-16.0) gm/dL Hct 37.9 (34.0-46.0) % MCV 83.8 (80.0-100.0) fL MCH 29.0 (25.0-35.0) pg MCHC 34.5 (31.0-37.0) g/dL RDW 13.2 (11.5-15.5) % Plt Count 142 L (150-450) k/uL Neutrophils % 72 % Lymphocytes % 22 % Monocytes % 4 % Eosinophils % 1 % Basophils % 0 % Neutrophils # 5.2 (1.3-7.7) k/uL Lymphocytes # 1.6 (1.0-4.8) k/uL Monocytes # 0.3 (0-1.0) k/uL Eosinophils # 0.1 (0-0.7) k/uL Basophils # 0.0 (0-0.2) k/uL Sodium 136 L (137-145) mmol/L Potassium 4.0 (3.5-5.1) mmol/L Chloride 106 (98-107) mmol/L Carbon Dioxide 23 (22-30) mmol/L Anion Gap 7 mmol/L BUN 12 (7-17) mg/dL Creatinine 0.44 L (0.52-1.04) mg/dL Est GFR (CKD-EPI)AfAm >90 (>60 ml/min/1.73 sqM) Est GFR (CKD-EPI)NonAf >90 (>60 ml/min/1.73 sqM) Glucose 83 (74-99) mg/dL Calcium 9.4 (8.4-10.2) mg/dL Urine Color Yellow Urine Appearance Cloudy H (Clear) Urine pH 6.5 (5.0-8.0) Ur Specific [place] 1.016 (1.001-1.035) Urine Protein Negative (Negative) Urine Glucose (UA) Negative (Negative) Urine Ketones 2+ H (Negative) Urine Blood Negative (Negative) Urine Nitrite Negative (Negative) Urine Bilirubin Negative (Negative) Urine Urobilinogen 2.0 (<2.0) mg/dL Ur Leukocyte Esterase Large H (Negative) Urine WBC 74 H (0-5) /hpf Ur Squamous Epith Cells 8 H (0-4) /hpf Amorphous Sediment Occasional H (None) /hpf Urine Mucus Occasional H (None) /hpf Disposition Clinical Impression: Shortness of breath, UTI (urinary tract infection) Disposition: HOME SELF-CARE Condition: Good Instructions (If sedation given, give patient instructions): Urinary Tract Infection in Women (ED) Prescriptions: Cephalexin [Keflex] 500 mg PO BID 7 Days #14 cap Is patient prescribed a controlled substance at d/c from ED?: No Referrals: None,Stated [Primary Care Provider] - 1-2 days David Bueno DO [Doctor of Osteopathic Medicine] - 1-2 days Time of Disposition: 19:28
[2018-05-24 18:50] VITALS: PULSE 70; RESP 16
[2018-05-24 19:22] VITALS: BP 103/66
--- NOTE | 2018-05-28 01:38 | CDI ---
Dear Dae Harry DO: Please do addendum Physical Examination. Thank you, Jesus Saldaña, Life Enrichment Specialist. If you have any questions, please contact [employer] at [phone]. [facility]
== END 2018-05-24 19:53 | disposition home or self-care (01) ==
LOC: EC 15:53
DX: O23.41 Unspecified infection of urinary tract in pregnancy, first trimester (principal); O99.89 Other specified diseases and conditions complicating pregnancy, childbirth and the puerperium; R06.02 Shortness of breath; O99.511 Diseases of the respiratory system complicating pregnancy, first trimester; J45.909 Unspecified asthma, uncomplicated; Z91.018 Allergy to other foods; Z53.20 Procedure and treatment not carried out because of patient's decision for unspecified reasons; Z3A.13 13 weeks gestation of pregnancy
CPT/HCPCS: 36415; 71046; 80048; 81001; 85025; 87086; 93005; 93970; 96360; 99284

== ENCOUNTER 2018-08-11 09:29 | Outpatient (CLI) | payer OTHER ==
[2018-08-11 10:26] VITALS: BP 112/71; PULSE 93; RESP 16; TEMP 98
[2018-08-11 10:28] LABS: Appearance,Urine Clear (Clear); Bilirubin,Urine Negative (Negative); Blood,Urine Negative (Negative); Color,Urine Colorless; Glucose,Urine (UA) Negative (Negative); Ketones,Urine Negative (Negative); Leukocyte Esterase,Urine Small (Negative); Nitrite,Urine Negative (Negative); Protein,Urine Negative (Negative); RBC,Urine <1 /hpf (0-5); Specific Gravity,Urine 1.002 (1.001-1.035); Squamous Epithelial Cell,Urine <1 /hpf (0-4); Urobilinogen,Urine <2.0 mg/dL (<2.0); WBC,Urine 1 /hpf (0-5)
--- NOTE | 2018-08-14 08:29 | P.MSEPDOC ---
Presenting Problems - Arrival Data Date of Arrival on Unit: 08/11/18 Time of Arrival on Unit: 09:29 Mode of Transport: Ambulatory - Complaint OB-Reason for Admission/Chief Complaint: Vaginal Bleeding Comment: pt states cramping for the past 3 days along with spotting pinkish brown discharge for the past wee Medical History - Information : 7 Para: 2 Term: 2 : 0 Abortions: Spontaneous or Elective: 4 Number of Living Children: 2 - Gestational Age Gestational Age by ARUN (wks/days): 24 Weeks and 4 Days Review of Systems - Review of Systems Constitutional: No problems Breast: No problems ENT: No problems Cardiovascular: No problems Respiratory: No problems Gastrointestinal: No problems Genitourinary: No problems Musculoskeletal: No problems Neurological: No problems Skin: No problems Vital Signs - Temperature Temperature: 98.0 F Temperature Source: Oral - Pulse Right Brachial Pulse Rate: 93 Pulse Assessment Method: Automatic Cuff - Respirations Respiratory Rate: 16 Oxygen Delivery Method: Room Air O2 Sat by Pulse Oximetry: 99 - Blood Pressure Right Arm Blood Pressure: 112/71 Blood Pressure Mean: 84 Blood Pressure Source: Automatic Cuff Medical Screen Scoring (Pre) - Cervical Exam Dilation: 0 cm = 0 Membranes: Intact - Uterine Contractions Frequency: N/A Duration: N/A Intensity: N/A - Maternal Vital Signs Maternal Temperature: N/A Maternal Blood Pressure: N/A Signs of Preeclampsia: N/A Maternal Respirations: N/A - Pain Assessment Pain Location and Character: Abdomen Pain Scale Used: Numeric (1 - 10) Pain Intensity: 0 Pain Management Goal: 0 Pain Frequency: Daily Pain Duration Units: Days Pain Behavior: Vocalization - Assessment Baseline FHR: 150 Heart Rate - NICHD Category: Category I (Normal) = 0 Position: N/A, Non-vertex & not laboring = 3 Station: N/A - Total Score Total Score (Pre): 3 - Level of Risk Level of Risk: Low (0-5) Physician Notification (Pre) - Physician Notified Physician Notified Date: 08/11/18 Physician Notified Time: 10:06 Physician/Practitioner Notifed:: Zac Spoke With: Zac New Order Received: Yes - Notification Comment Comment: obtain FFN and UA Physician Notification (Post) - Physician Notified Physician Notified Date: 08/11/18 Physician Notified Time: 10:48 Physician/Practitioner Notified:: Zac Spoke With: Zac New Order Received: Yes - Notification Comment Comment: pt may be discharged home Disposition - Disposition OB Disposition: Discharge to home Discharge Date: 08/11/18 Discharge Time: 10:49 I agree with the RN Medical Screening Exam: Yes Risk & Benefit of care provided described in d/c instruction: Yes Diagnosis: SPOTTING COMPLICATING , THIRD TRIMESTER
== END 2018-08-11 10:59 | disposition home or self-care (01) ==
LOC: FBPOP 09:29
PROVIDERS: ATTEND Obstetrics & Gynecology
DX: O26.852 Spotting complicating pregnancy, second trimester (principal); Z3A.24 24 weeks gestation of pregnancy
CPT/HCPCS: 81001; G0463; 99213

== ENCOUNTER → 2018-08-12 | Outpatient (CLI) | payer OTHER ==
--- NOTE | 2018-08-12 13:06 | US ---
EXAMINATION TYPE: US OB >= 14 wk fetus DATE OF EXAM: 08/12/2018 COMPARISON: US 2018 CLINICAL HISTORY: O46.92 Bleeding 2nd trimesterSpotting x 2 days TECHNIQUE: Transabdominal (TA) GESTATIONAL AGE / DATING Physician Established: (24 weeks/5 days) EDC: 11/27/2018 Dates by LMP: (24 weeks/5 days) EDC: 11/27/2018 Dates by First Scan: (23 weeks/5 days) EDC: 12/04/2018 Dates by Current Scan: (24 weeks/6 days) EDC: 11/26/2018 SURVEY IUP: Single PLACENTA: Fundal PREVIA: No Previa RODRÍGUEZ: 13.9 cm Normal CERVICAL LENGTH (transabdominal: norm > 3.0cm): 3.6 cm BIOMETRY PRESENTATION: Vertex LIE: Longitudinal BPD: 6.2 cm 25 weeks / 2 days HC: 22.8 cm 24 weeks / 6 days AC: 20.0 cm 24 weeks / 5 days FL: 4.5 cm 24 weeks / 5 days ESTIMATED WEIGHT IN GRAMS: 731 grams ESTIMATED WEIGHT IN LBS/OZ: 1 lbs. 10 oz. WEIGHT PERCENTAGE BASED ON ESTABLISHED DATES: 42% HC/AC: 1.14 Normal FL/AC: 22.36 Normal HEART RATE: 148 bpm RHYTHM: Normal Single live IUP measuring 24 weeks 6 days with a heart rate of 148bpm and an estimated delivery date of 11/26/2018. IMPRESSION: Single live intrauterine with a sonographic age of 24 weeks and 6 days and estimated date o f delivery of 11/26/2018, concordant with menstrual age. Heart rate is within normal limits at 148 bpm . Amniotic fluid index is also within normal limits at 13.9.
== END | disposition home or self-care (01) ==
LOC: RADUSWWP 10:21
PROVIDERS: ATTEND Obstetrics & Gynecology
DX: O46.92 Antepartum hemorrhage, unspecified, second trimester (principal); Z3A.24 24 weeks gestation of pregnancy
CPT/HCPCS: 76805

== ENCOUNTER 2018-09-01 09:30 | Outpatient (CLI) | payer OTHER ==
[2018-09-01 10:24] VITALS: BP 119/68; PULSE 111; RESP 18; TEMP 97.4
--- NOTE | 2018-09-01 10:51 | US ---
EXAMINATION TYPE: US OB >= 14 wk fetus DATE OF EXAM: 09/01/2018 COMPARISON: 08/04/2018 CLINICAL HISTORY: 23-year-old female vaginal bleeding x 1 day TECHNIQUE: Transabdominal (TA) FINDINGS: GESTATIONAL AGE / DATING Physician Established: (27 weeks/4 days) EDC: 11/27/2018 Dates by LMP: (27 weeks/4 days) EDC: 11/27/2018 Dates by First Scan: (26 weeks/4 days) EDC: 12/04/2018 Dates by Current Scan: (27 weeks/5 days) EDC: 11/26/2018 SURVEY IUP: Single PLACENTA: Fundal: 1.7cm hypoechoic area seen there is no associated vascularity. PREVIA: No Previa RODRÍGUEZ: 10.6 cm Normal CERVICAL LENGTH (transabdominal: norm > 3.0cm): 3.4 cm BIOMETRY PRESENTATION: Vertex LIE: Longitudinal BPD: 7.1 cm 28 weeks / 2 days HC: 26.0 cm 28 weeks / 2 days AC: 23.9 cm 28 weeks / 1 days FL: 5.2 cm 27 weeks / 6 days ESTIMATED WEIGHT IN GRAMS: 1172 grams ESTIMATED WEIGHT IN LBS/OZ: 2 lbs. 9 oz. WEIGHT PERCENTAGE BASED ON ESTABLISHED DATES: 58% (versus 42%, previously) HC/AC: 1.09 Normal FL/AC: 21.87 Normal HEART RATE: 145 bpm RHYTHM: Normal [employer]ished [employer] Stock Clerk notes: Viable single IUP measuring 27 weeks 5 days with a heart rate of 145bpm and an est imated delivery date of 11/26/2018. IMPRESSION: 1. Single live intrauterine with estimated gestational age of 27 weeks 4 days by LMP. Curre nt ultrasound biometry remains concordant (27 weeks 5 days) placing the child at the 50th percentile for weight. 2. A 1.7 cm hypoechoic area along the surface of the placenta could represent a prominent venou s pendleton, chorioangioma, or small area of placental bleeding. Follow-up can be performed.
[2018-09-01] MEDS ORDERED: ACETAMINOPHEN TAB 500 MG TAB PO STA (12:21)
--- NOTE | 2018-09-01 12:27 | P.TRANS ---
Providers Expected date of discharge: 09/01/18 Attending physician: David Bueno Primary care physician: Stated None Hospital Course: Care is a 23-year-old at 27 weeks gestation who arrives complaining of bleeding. She noted that earlier this morning she got up and had a large gush of blood and that gush continued for only a few minutes and then had started to slow. By the time she gets labor and delivery it was not more than spotting. We have monitored her and an ultrasound was obtained. heart tones are in the 140s and are reactive. There is a category 1 tracing. There is no evidence of contractions or tetanic uterus. She denies any pain her belly. She relates that she had intercourse yesterday but none since and that she did not have any bleeding after intercourse. Ultrasound today revealed possible 1.7 cm placental late versus possible small separation. RODRÍGUEZ was 10.5. A digital exam was done revealing a closed cervix following a speculum exam showing small amount of blood in the vaginal vault and no active bleeding. As she is only 27 weeks and I'm concerned that this may be something that is going to progress we are transferring her to maternal medicine at least at this time in stable condition for a second opinion in the unlikely event that an emergency is encountered and she would need early delivery. Her Precis course prior to this did include one episode of spotting adequate approximate 24 weeks no bleeding was noted when she was examined at that time and there was no blood in her urine or during that exam. We did discuss risks of transfer, but as she is only 27 weeks and if we were to have to deliver this baby would have significant difficulties in management as this hospital is not qualified care for baby at 27 weeks. All questions are answered for her at this time. On physical exam vital signs are currently stable afebrile. Heart regular, lungs clear, extremities without pain. Abdomen as above. Pelvic exam revealed closed cervix that is somewhat soft but does still retained thickness. Assessment intrauterine 27 weeks with vaginal bleeding. Plan transfer to [facility]. Patient Condition at Discharge: Stable
== END 2018-09-01 13:53 | disposition other institution (70) ==
LOC: FBPOP 09:30
PROVIDERS: ATTEND Obstetrics & Gynecology
DX: O46.92 Antepartum hemorrhage, unspecified, second trimester (principal); Z3A.27 27 weeks gestation of pregnancy
CPT/HCPCS: 76805; G0463; 99215

== ENCOUNTER 2018-11-06 15:31 | Outpatient (CLI) | payer OTHER ==
[2018-11-06 20:08] VITALS: BP 109/66; PULSE 90; RESP 18; TEMP 98.2
--- NOTE | 2018-12-12 16:45 | P.MSEPDOC ---
Presenting Problems - Arrival Data Date of Arrival on Unit: 11/06/18 Time of Arrival on Unit: 15:20 Mode of Transport: Ambulatory - Complaint Comment: pelvic pressure Medical History - Information : 7 Para: 2 Term: 2 : 0 Abortions: Spontaneous or Elective: 4 Number of Living Children: 2 - Gestational Age Gestational Age by ARUN (wks/days): 37 Weeks and 0 Days - History Comment: denies history Review of Systems - Review of Systems Constitutional: No problems Breast: No problems ENT: No problems Cardiovascular: No problems Respiratory: No problems Gastrointestinal: No problems Genitourinary: No problems Musculoskeletal: No problems Neurological: No problems Skin: No problems Vital Signs - Temperature Temperature: 98.2 F Temperature Source: Oral - Pulse Right Brachial Pulse Rate: 90 Pulse Assessment Method: Automatic Cuff - Respirations Respiratory Rate: 18 Oxygen Delivery Method: Room Air O2 Sat by Pulse Oximetry: 97 - Blood Pressure Right Arm Blood Pressure: 109/66 Blood Pressure Mean: 80 Blood Pressure Source: Automatic Cuff Medical Screen Scoring (Pre) - Cervical Exam Dilation: 0 cm = 0 Effacement: Exam Deferred Membranes: Intact - Uterine Contractions Frequency: > 5 minutes apart = 1 Duration: N/A Intensity: N/A - Maternal Vital Signs Maternal Temperature: N/A Maternal Blood Pressure: N/A Signs of Preeclampsia: N/A Maternal Respirations: N/A - Maternal Trauma Maternal Trauma: N/A - Assessment - Baby A Baseline FHR: 135 Heart Rate - NICHD Category: Category I (Normal) = 0 NST: Reactive Position: N/A, Non-vertex & not laboring = 3 - Total Score - Baby A Total Score - Baby A: 4 - Total Score - Baby B Total Score - Baby B: 1 - Total Score - Baby C Total Score - Baby C: 1 - Level of Risk - Baby A Level of Risk - Baby A: Low (0-5) - Level of Risk - Baby B Level of Risk - Baby B: Low (0-5) - Level of Risk - Baby C Level of Risk - Baby C: Low (0-5) Physician Notification (Pre) - Physician Notified Spoke With: steve Tovar Order Received: Yes - Notification Comment Comment: discharge Disposition - Disposition OB Disposition: Discharge to home Discharge Date: 11/06/18 Discharge Time: 16:10 I agree with the RN Medical Screening Exam: Yes Risk & Benefit of care provided described in d/c instruction: Yes Diagnosis: FALSE LABOR AT OR AFTER 37 COMPLETED WEEKS OF GESTATION
== END 2018-11-06 16:10 | disposition home or self-care (01) ==
LOC: FBPOP 15:31
PROVIDERS: ATTEND Obstetrics & Gynecology
DX: O47.1 False labor at or after 37 completed weeks of gestation (principal); Z3A.37 37 weeks gestation of pregnancy
CPT/HCPCS: 59025; G0463; 99213

== ENCOUNTER 2018-11-18 20:10 | Outpatient (CLI) | payer OTHER ==
[2018-11-18 21:33] VITALS: BP 115/75; PULSE 127; RESP 12; TEMP 97
--- NOTE | 2018-11-19 01:11 | P.MSEPDOC ---
Presenting Problems - Arrival Data Date of Arrival on Unit: 11/18/18 Time of Arrival on Unit: 20:10 Mode of Transport: Ambulatory - Complaint OB-Reason for Admission/Chief Complaint: Possible Onset of Labor Comment: pt states contractions beginning around 1800 this evening, every 7 minutes but are now spacing out Medical History - Information : 7 Para: 2 Term: 2 : 0 Abortions: Spontaneous or Elective: 4 Number of Living Children: 2 - Gestational Age Gestational Age by ARUN (wks/days): 38 Weeks and 5 Days Review of Systems - Review of Systems Constitutional: No problems Breast: No problems ENT: No problems Cardiovascular: No problems Respiratory: No problems Gastrointestinal: No problems Genitourinary: No problems Musculoskeletal: No problems Neurological: No problems Skin: No problems Vital Signs - Temperature Temperature: 97 F Temperature Source: Temporal Artery Scan - Pulse Right Pulse Rate: 127 Pulse Assessment Method: Automatic Cuff - Respirations Respiratory Rate: 12 Oxygen Delivery Method: Room Air O2 Sat by Pulse Oximetry: 98 - Blood Pressure Right Arm Blood Pressure: 115/75 Blood Pressure Mean: 88 Blood Pressure Source: Automatic Cuff Medical Screen Scoring (Pre) - Cervical Exam Dilation: 1-3 cm = 1 Membranes: Intact - Uterine Contractions Frequency: > or = 36 weeks =2 - Maternal Vital Signs Maternal Temperature: N/A Maternal Blood Pressure: N/A Signs of Preeclampsia: N/A Maternal Respirations: N/A - Maternal Trauma Maternal Trauma: N/A - Assessment - Baby A Baseline FHR: 130 Heart Rate - NICHD Category: Category I (Normal) = 0 NST: Reactive - Total Score - Baby A Total Score - Baby A: 3 - Total Score - Baby B Total Score - Baby B: 3 - Total Score - Baby C Total Score - Baby C: 3 - Level of Risk - Baby A Level of Risk - Baby A: Low (0-5) - Level of Risk - Baby B Level of Risk - Baby B: Low (0-5) - Level of Risk - Baby C Level of Risk - Baby C: Low (0-5) Physician Notification (Pre) - Physician Notified Physician Notified Date: 11/18/18 Physician Notified Time: 20:25 Physician/Practitioner Notifed:: Dr Ochoa New Order Received: Yes - Notification Comment Comment: recheck cervix in an hour from previous check, if cervix is unchanged d/c home with orders to keep appt with Dr Bueno for . Disposition - Disposition OB Disposition: Discharge to home Discharge Date: 11/18/18 Discharge Time: 21:25 I agree with the RN Medical Screening Exam: Yes Risk & Benefit of care provided described in d/c instruction: Yes Diagnosis: FALSE LABOR AT OR AFTER 37 COMPLETED WEEKS OF GESTATION
== END 2018-11-18 21:25 | disposition home or self-care (01) ==
LOC: FBPOP 20:10
PROVIDERS: ATTEND Obstetrics & Gynecology
DX: O47.1 False labor at or after 37 completed weeks of gestation (principal); Z3A.38 38 weeks gestation of pregnancy
CPT/HCPCS: 59025; G0463; 99213

== ENCOUNTER 2018-11-20 06:51 | Inpatient (IN) | payer OTHER ==
[2018-11-20] MEDS ORDERED: METHYLERGONOVINE 0.2 MG/ML 1 ML AMP IM PRN (06:58)
[2018-11-20] MEDS ORDERED: LIDOCAINE 0.5% (PF) 5 MG/ML (50 ML SDV) SQ PRN (06:58)
[2018-11-20] MEDS ORDERED: CARBOPROST TROMETHAMINE 250 MCG/ML 1 ML AMP IM PRN (06:58)
[2018-11-20] MEDS ORDERED: TERBUTALINE 1 MG/ML VIAL SQ PRN (06:58)
[2018-11-20] MEDS ORDERED: OXYTOCIN 10 UNIT/ML 1 ML VIAL IM PRN (06:58)
[2018-11-20] MEDS ORDERED: OXYTOCIN 30 UNITS/500 ML NS 30 UNIT in SALINE 1 500ML.BAG IV SCH (07:00)
[2018-11-20] MEDS: LACTATED RINGERS 1,000 ML IV SCH ×2 (07:24→13:56)
[2018-11-20 07:29] LABS: Basophils % (A) 0 %; Eosinophils # (A) 0.1 k/uL (0-0.7); Eosinophils % (A) 1 %; HCT 38.6 % (34.0-46.0); HGB 13.2 gm/dL (11.4-16.0); Lymphocytes # (A) 1.5 k/uL (1.0-4.8); Lymphocytes % (A) 17 %; MCH 30.4 pg (25.0-35.0); MCHC 34.2 g/dL (31.0-37.0); MCV 89.1 fL (80.0-100.0); Mean Platelet Volume 9.5; Monocytes # (A) 0.5 k/uL (0-1.0); Monocytes % (A) 5 %; Neutrophils # (A) 6.8 k/uL (1.3-7.7); Neutrophils % (A) 75 %; Platelet Count 115 k/uL (150-450); RBC 4.33 m/uL (3.80-5.40); RDW 13.8 % (11.5-15.5)
[2018-11-20 07:32] VITALS: BMI 28.3
[2018-11-20] MEDS ORDERED: BUTORPHANOL 1 MG/ML 1 ML VIAL IV PRN (12:12)
[2018-11-20] MEDS ORDERED: LANOLIN CREAM 5 GM TUBE TOPICAL PRN (17:54)
[2018-11-20] MEDS ORDERED: diphenhydrAMINE 25 MG CAP PO PRN (17:54)
[2018-11-20] MEDS ORDERED: SIMETHICONE 80 MG CHEWABLE PO PRN (17:54)
[2018-11-20] MEDS ORDERED: diphenhydrAMINE 50 MG/ML 1 ML VIAL IVP PRN ×2 (17:54)
[2018-11-20] MEDS ORDERED: HYDROCORTISONE 2.5% RECTAL CREAM 30 GM TUBE RECTAL PRN (17:54)
[2018-11-20] MEDS ORDERED: WITCH HAZEL 1 EACH MED..PAD TOPICAL PRN (17:54)
[2018-11-20] MEDS ORDERED: ZOLPIDEM 5 MG TAB PO PRN (17:54)
[2018-11-20] MEDS ORDERED: diphenhydrAMINE 50 MG CAP PO PRN (17:54)
[2018-11-20] MEDS ORDERED: BENZOCAINE/MENTHOL SPRAY 1 GM/SPRAY AEROSOL TOPICAL PRN (17:54)
--- NOTE | 2018-11-20 17:56 | P.HPOB ---
History of Present Illness H&P Date: 11/20/18 Chief Complaint: Intrauterine at term: Induction of labor Judith is a 23-year-old at 39 weeks gestation arise for induction of labor. Her Precis course has been, complicated by thrombocytopenia for which she saw hematology as well as second menstrual bleeding for which she sought maternal medicine. She did have a history of a LEEP in 2012 but has had no problems or palpitations from that. At this time she is feeling very well and her platelets have rebounded under more than 100. She voices no complaints following artificial rupture membranes with clear fluid noted she was dilated to 5 cm 80% effaced -2 station. Category 1 tracing is noted. Past Medical History Past Medical History: Asthma Additional Past Medical History / Comment(s): Obstetric history: First was a vaginal delivery 6 lbs. 7 oz. at 37 weeks. 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 This is her sixth . She's had care with Dr. Thompson since 10 weeks gestation. Her blood type is O+, antibodies negative, rubella immune, hepatitis B negative, RPR nonreactive. She is getting migraines with the was on the uterus that. Normal 1 hour glucose tolerance test. GBS negative. History of Any Multi-Drug Resistant Organisms: None Reported Additional Past Surgical History / Comment(s): leep Past Anesthesia/Blood Transfusion Reactions: No Reported Reaction Past Psychological History: Anxiety, Depression Smoking Status: Never smoker Past Alcohol Use History: None Reported Past Drug Use History: None Reported - Past Family History Father History Unknown: Yes Medications and Allergies Home Medications Medication Instructions Recorded Confirmed Type Acetaminophen Tab [Tylenol] 1 tab PO DIRECTED PRN 08/11/18 11/20/18 History Pnv,Calcium 72/Iron/Folic Acid 1 each PO DIRECTED PRN 08/11/18 11/20/18 History [ Plus Tablet] Allergies Allergy/AdvReac Type Severity Reaction Status Date / Time bee venom protein (honey bee) Allergy Anaphylaxis Verified 11/20/18 06:56 Exam Osteopathic Statement: *. No significant issues noted on an osteopathic structural exam other than those noted in the History and Physical/Consult. Vital Signs Temp Pulse Resp BP Pulse Ox 11/20/18 06:55 97.5 F L 86 16 126/71 99 Intake and Output 11/20/18 11/20/18 11/20/18 06:59 14:59 22:59 Intake Total 1000 Balance 1000 Intake: IV 1000 Lactated Ringers 1,000 ml 1000 @ 125 mls/hr IV .Q8H [facility] Rx#:[id number] Other: Weight 74.843 kg - OBG Physical Exam Breast: both: normal (no masses) Abdomen: bowel sounds normal, no diffuse tenderness, no bruit present, no guarding noted, no hepatomegaly, no splenomegaly, no mass Vulva: both: normal Vagina: normal moisture, no discharge Cervix: no lesion, no discharge Uterus: normal size, normal contour Adnexa: both: normal Anus/Rectum: normal perianal skin, no rectal mass, no hemorrhoids, heme negative Results Result Diagrams: 11/20/18 07:05 Abnormal Lab Results - Last 24 Hours (Table) 11/20/18 Range/Units 07:05 Plt Count 115 L (150-450) k/uL
--- NOTE | 2018-11-20 17:57 | P.PROBDLV ---
Vaginal Delivery Note - . Vaginal Delivery Note: Patient progressed complete and pushed with spontaneous vaginal delivery of a viable male over a first repair any laceration. Falling deliver the head anterior posterior shoulders were easily delivered with gentle downward upper traction followed by the remainder the baby. Mouth nares were bulb suctioned and the umbilical cord was allowed to pulsate for 30 seconds prior to clamping cutting once this was accomplished, nursery personnel was present and assumed care. Placenta was then delivered intact and Pitocin was added to the IV. scores were 9 and 9 at one and 5 minutes respectfully weight is pending. Both mother and baby are stable following delivery. First degree perineal laceration was repaired in interrupted fashion with 2 sutures following 1% Xylocaine for analgesia.
[2018-11-20] MEDS ORDERED: OXYTOCIN 20 UNITS/1000 ML NS 1,000 ML IV SCH (18:00)
[2018-11-20] MEDS: IBUPROFEN 600 MG TAB PO PRN ×2 (18:13→23:40)
[2018-11-20] MEDS: ACETAMINOPHEN TAB 325 MG TAB PO PRN (20:30)
[2018-11-20] MEDS: SENNOSIDES-DOCUSATE SODIUM 1 EACH TAB PO SCH (20:31)
[2018-11-21] MEDS: LACTATED RINGERS 1,000 ML IV SCH (01:13)
[2018-11-21] MEDS: ACETAMINOPHEN TAB 325 MG TAB PO PRN ×2 (04:22→10:37)
[2018-11-21] MEDS: SENNOSIDES-DOCUSATE SODIUM 1 EACH TAB PO SCH (07:34)
[2018-11-21] MEDS: IBUPROFEN 600 MG TAB PO PRN ×2 (07:34→17:48)
--- NOTE | 2018-11-21 08:27 | P.DS ---
Providers Date of admission: 11/20/18 06:51 Expected date of discharge: 11/21/18 Attending physician: David Bueno Primary care physician: Stated None - Discharge Diagnosis(es) (1) Normal vaginal delivery Current Visit: No Status: Acute Hospital Course: Patient presented for induction of labor. She underwent a normal vaginal delivery. Her post course was uncomplicated. She'll be discharged home day #1 in stable condition to follow-up with Dr. Bueno in 6 weeks. Plan - Discharge Summary New Discharge Prescriptions: New Ibuprofen [Motrin] 600 mg PO Q6HR PRN #30 tab PRN Reason: Mild Pain Or Fever >= 100.5 No Action Pnv,Calcium 72/Iron/Folic Acid [ Plus Tablet] 1 each PO DIRECTED PRN PRN Reason: Pain Acetaminophen Tab [Tylenol] 1 tab PO DIRECTED PRN PRN Reason: Pain Discharge Medication List Acetaminophen Tab [Tylenol] 1 tab PO DIRECTED PRN 08/11/18 [History] Pnv,Calcium 72/Iron/Folic Acid [ Plus Tablet] 1 each PO DIRECTED PRN 08/11/18 [History] Ibuprofen [Motrin] 600 mg PO Q6HR PRN #30 tab 11/21/18 [Rx] Follow up Appointment(s)/Referral(s): David Bueno DO [Doctor of Osteopathic Medicine] - 6 Weeks Discharge Disposition: HOME SELF-CARE
[2018-11-21 15:59] VITALS: BP 113/68; PULSE 88; RESP 16; TEMP 98.1
== END 2018-11-21 18:33 | disposition home or self-care (01) | DRG 806 ==
LOC: 4FBP 06:51
PROVIDERS: ADMIT Obstetrics & Gynecology; ATTEND Obstetrics & Gynecology
PROC: 10E0XZZ Delivery of Products of Conception, External Approach (ICD-10-PCS; principal; 2018-11-20)
PROC: 0HQ9XZZ Repair Perineum Skin, External Approach (ICD-10-PCS; 2018-11-20)
PROC: 10907ZC Drainage of Amniotic Fluid, Therapeutic from Products of Conception, Via Natural or Artificial Opening (ICD-10-PCS; 2018-11-20)
DX: O70.0 First degree perineal laceration during delivery (principal); O99.12 Other diseases of the blood and blood-forming organs and certain disorders involving the immune mechanism complicating childbirth; Z37.0 Single live birth; O99.344 Other mental disorders complicating childbirth; O99.52 Diseases of the respiratory system complicating childbirth; D69.6 Thrombocytopenia, unspecified; F32.9 Major depressive disorder, single episode, unspecified; F41.9 Anxiety disorder, unspecified; J45.909 Unspecified asthma, uncomplicated; Z3A.39 39 weeks gestation of pregnancy; G43.909 Migraine, unspecified, not intractable, without status migrainosus
CPT/HCPCS: 85025; 86850; 86900; 86901

== ENCOUNTER 2018-12-14 15:26 | Emergency (ER) | payer OTHER ==
[2018-12-14 15:52] VITALS: BP 116/74; PULSE 75; RESP 16
[2018-12-14 16:48] VITALS: TEMP 98.5
--- NOTE | 2018-12-14 17:43 | ED ---
General Adult HPI - General Chief complaint: Recheck/Abnormal Lab/Rx Stated complaint: Breast pain Time Seen by Provider: 12/14/18 16:43 Source: patient, RN notes reviewed Mode of arrival: ambulatory Limitations: no limitations - History of Present Illness Initial comments: 23-year-old female presents to the emergency department for a chief complaint of right breast pain. She states this has been ongoing for about 3 days. Patient states she had a vaginal delivery 3 weeks ago and has been breast-feeding. She does state that she has stopped breast-feeding but continued to pump. Patient states that her right breast is starting to become reddened. She states she has subjective fevers at home. States she has had chills and felt warm on and off. Denies any other complaints.Patient has no other complaints at this time including shortness of breath, chest pain, abdominal pain, nausea or vomiting, headache, or visual changes. - Related Data Home Medications Medication Instructions Recorded Confirmed Acetaminophen Tab [Tylenol] 1 tab PO DIRECTED PRN 08/11/18 11/20/18 Pnv,Calcium 72/Iron/Folic Acid 1 each PO DIRECTED PRN 08/11/18 11/20/18 [ Plus Tablet] Previous Rx's Medication Instructions Recorded Ibuprofen [Motrin] 600 mg PO Q6HR PRN #30 tab 11/21/18 Dicloxacillin [Dynapen] 500 mg PO Q6H 10 Days #40 capsule 12/14/18 Allergies Allergy/AdvReac Type Severity Reaction Status Date / Time bee venom protein (honey bee) Allergy Anaphylaxis Verified 11/20/18 06:56 Review of Systems ROS Statement: Those systems with pertinent positive or pertinent negative responses have been documented in the HPI. ROS Other: All systems not noted in ROS Statement are negative. Past Medical History Past Medical History: Asthma Additional Past Medical History / Comment(s): Obstetric history: First was a vaginal delivery 6 lbs. 7 oz. at 37 weeks. 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 This is her sixth . She's had care with Dr. Thompson since 10 weeks gestation. Her blood type is O+, antibodies negative, rubella immune, hepatitis B negative, RPR nonreactive. She is getting migraines with the was on the uterus that. Normal 1 hour glucose tolerance test. GBS negative. History of Any Multi-Drug Resistant Organisms: None Reported Additional Past Surgical History / Comment(s): leep Past Anesthesia/Blood Transfusion Reactions: No Reported Reaction Past Psychological History: Anxiety, Depression Smoking Status: Never smoker Past Alcohol Use History: None Reported Past Drug Use History: None Reported - Past Family History Father History Unknown: Yes General Exam Limitations: no limitations General appearance: alert, in no apparent distress Head exam: Present: atraumatic, normocephalic, normal inspection Eye exam: Present: normal appearance, PERRL, EOMI. Absent: scleral icterus, conjunctival injection, periorbital swelling ENT exam: Present: normal exam, mucous membranes moist Neck exam: Present: normal inspection, full ROM. Absent: tenderness, meningismus, lymphadenopathy Respiratory exam: Present: normal lung sounds bilaterally. Absent: respiratory distress, wheezes, rales, rhonchi, stridor Cardiovascular Exam: Present: regular rate, normal rhythm, normal heart sounds. Absent: systolic murmur, diastolic murmur, rubs, gallop, clicks GI/Abdominal exam: Present: soft, normal bowel sounds. Absent: distended, tenderness, guarding, rebound, rigid Skin exam: Present: other (Patient has erythema and tenderness noted to the right breast. This is not well demarcated and appears to be a mastitis. No fluctuant or indurated area suggestive of abscess.) Course Vital Signs 12/14/18 12/14/18 15:48 16:46 Temperature 99.3 F 98.5 F Pulse Rate 75 Respiratory 16 Rate Blood Pressure 116/74 O2 Sat by Pulse 97 Oximetry Medical Decision Making - Medical Decision Making 23-year-old female resents for painful right breast 3 days. Patient is 3 weeks. Patient has recently stopped breast-feeding but has continued to pump. Subjective fevers at home however vitals are stable and patient is afebrile here in the emergency department. On examination patient has erythema and tenderness noted of the right breast without induration or fluctuance suggestive of abscess. Patient likely has mastitis. Patient will be started on antibiotic therapy. Discussed warm compresses and continuing to pump. Discussed following up with her OB in 1-2 days. Discussed returning here if she has any worsening symptoms.I discussed this case with attending Dr. Polo who agrees with this assessment and treatment plan. Disposition Clinical Impression: Mastitis Disposition: HOME SELF-CARE Condition: Good Instructions (If sedation given, give patient instructions): Mastitis (ED) Additional Instructions: Please take antibiotic as directed. Continue to pump or breast feed. Apply warm compresses. Take NSAIDs for pain. Follow-up with OB in 1-2 days. Return to the emergency department if you have any worsening symptoms. Prescriptions: Dicloxacillin [Dynapen] 500 mg PO Q6H 10 Days #40 capsule Is patient prescribed a controlled substance at d/c from ED?: No Referrals: David Bueno DO [Doctor of Osteopathic Medicine] - 1-2 days Time of Disposition: 17:42
== END 2018-12-14 18:02 | disposition home or self-care (01) ==
LOC: EC 15:26
DX: O91.23 Nonpurulent mastitis associated with lactation (principal); Z91.030 Bee allergy status
CPT/HCPCS: 99283

== ENCOUNTER 2019-02-27 06:25 | Day surgery (SDC) | payer OTHER ==
[2019-02-25 16:08] VITALS: BMI 23.5
--- NOTE | 2019-02-25 18:01 | P.HPOB ---
History of Present Illness H&P Date: 02/25/19 Chief Complaint: Family planning Maria Teresa is a 23-year-old female who has completed her family planning and desires permanent sterilization she was a 7 para 3. She is aware that this is designed to be permanent procedure and that there is a failure rate between 2 and 4 per thousand. All questions were answered for her prior to proceeding to the operating room. Risks/benefits/alternatives were also reviewed with the patient in detail and did include but were not limited to bleeding and infection, damage to bladder, damage to bowel, vascular injuries, nerve damage, bleeding, infection. Potential need further surgeries. Past Medical History Past Medical History: Asthma Additional Past Medical History / Comment(s): MIGRAINE HEADACHE , . History of Any Multi-Drug Resistant Organisms: None Reported Additional Past Surgical History / Comment(s): leep procedure , Past Anesthesia/Blood Transfusion Reactions: No Reported Reaction Smoking Status: Former smoker - Past Family History Father History Unknown: Yes Mother Family Medical History: Cancer, Deep Vein Thrombosis (DVT) Medications and Allergies Home Medications Medication Instructions Recorded Confirmed Type Acetaminophen Tab [Tylenol] 1 tab PO Q6H PRN 08/11/18 02/25/19 History Ibuprofen [Motrin] 600 mg PO Q6HR PRN #30 tab 11/21/18 02/25/19 Rx Albuterol Sulfate [Ventolin HFA] 1 - 2 puff INHALATION Q6H PRN 02/25/19 02/25/19 History Multivitamins, Thera [Multivitamin 1 tab PO DAILY 02/25/19 02/25/19 History (formulary)] Allergies Allergy/AdvReac Type Severity Reaction Status Date / Time bee venom protein (honey bee) Allergy Anaphylaxis Verified 02/25/19 16:02 Exam Osteopathic Statement: *. No significant issues noted on an osteopathic structural exam other than those noted in the History and Physical/Consult. Intake and Output 02/25/19 02/25/19 02/25/19 06:59 14:59 22:59 Other: Weight 62.142 kg - OBG Physical Exam Breast: both: normal (no masses) Abdomen: bowel sounds normal, no diffuse tenderness, no bruit present, no guarding noted, no hepatomegaly, no splenomegaly, no mass Vulva: both: normal Vagina: normal moisture, no discharge Cervix: no lesion, no discharge Uterus: normal size, normal contour Adnexa: both: normal Anus/Rectum: normal perianal skin, no rectal mass, no hemorrhoids, heme negative
[~2019-02-27 06:25] MED LIST: Pre Op ABX Message 1 EACH MISC MISCELLANE ONE
[2019-02-27] MEDS ORDERED: LACTATED RINGERS 1,000 ML IV ONE (06:53)
[2019-02-27] MEDS ORDERED: LIDOCAINE 1% 20 ML VIAL (10MG/ML) FOR IV START INTRADERMA PRN (06:54)
[2019-02-27] MEDS ORDERED: LACTATED RINGERS 1,000 ML IV SCH (06:54)
[2019-02-27] MEDS ORDERED: KETOROLAC 30 MG/ML 1 ML VIAL IVP SCH (06:54)
[2019-02-27] MEDS ORDERED: SCOPOLAMINE 1.5MG/72HR PATCH TRANSDERM ONE (06:54)
[2019-02-27] MEDS ORDERED: DEXAMETHASONE SOD PHOSPHATE 10 MG/ML 1 ML VIAL IV ONE (06:54)
[2019-02-27] MEDS ORDERED: METOCLOPRAMIDE 5 MG/ML 2 ML VIAL IVP PRN (06:54)
[2019-02-27] MEDS: ONDANSETRON 4 MG/2 ML VIAL IVP ONE ×2 (06:58→08:25)
[2019-02-27] MEDS ORDERED: BUPIVACAINE (PF) 0.25% 30 ML VIAL SQ ONE ×2 (07:21→07:33)
[2019-02-27] MEDS ORDERED: PROPOFOL 10 MG/ML 20 ML VIAL IV ONE (07:29)
[2019-02-27] MEDS ORDERED: SUCCINYLCHOLINE CHLORIDE 100 MG/5 ML SYR IV ONE (07:29)
[2019-02-27] MEDS ORDERED: KETOROLAC 30 MG/ML 1 ML VIAL ONE (07:29)
[2019-02-27] MEDS ORDERED: fentaNYL (PF) 50 MCG/ML 2 ML AMP ONE (07:29)
[2019-02-27] MEDS ORDERED: MIDAZOLAM 2 MG/2 ML VIAL ONE (07:29)
[2019-02-27 08:13] VITALS: TEMP 97.3
--- NOTE | 2019-02-27 08:15 | P.OP ---
Date of Procedure: 02/27/19 Preoperative Diagnosis: Family planning Postoperative Diagnosis: Same Procedure(s) Performed: Laparoscopic tubal ligation Anesthesia: CLAYTON Surgeon: David Bueno Estimated Blood Loss (ml): 3 Urine output (ml): 20 Pathology: none sent Condition: stable Disposition: same day Operative Findings: Normal female pelvic anatomy Description of Procedure: Maria Teresa was taken to the operating suite where a general anesthetic was found to be adequate. She was prepped and draped in the normal sterile fashion and placed in the dorsal lithotomy position. Initially a speculum was inserted into the vagina and the anterior lip of the cervix was identified and grasped with an Allis clamp. Uterus was then sounded to 8 cm and a kroner manipulator was inserted without difficulty. Other instruments were then removed and red rubber catheter was used to drain the bladder urine. Gloves were then changed and attention was turned to the abdominal portion of the procedure where 2 mL of quarter percent Marcaine was injected periumbilically. Through this injected anesthetic a 5 mm skin incision was made and through this incision under direct visualization with an optical trocar and sleeve the camera was inserted. Once peritoneal placement was assured gas was allowed to fully insufflate the abdomen and patient was placed in steep Trendelenburg position. A second skin incision of 8 mm was then made 3 cm above the pubic symphysis in the midline. Through this incision again under direct visualization the trocar and sleeve was inserted. Uterus was then elevated and observations the pelvis and abdomen were made. No gross pathology was noted. Filshie clips were then applied 2 cm from uterine cornu bilaterally. No bleeding is noted in the mesosalpinx. Therefore instruments were removed and gas was allowed to expel from the abdomen. 5 deep breaths were provided during this process. Once this was completed 4-0 Vicryl was used to close the incision subcuticularly and another 6 mL of quarter percent Marcaine was injected around these incisions. Sponge, lap, needle counts were all correct 2. Patient was then taken to the recovery room in stable and satisfactory condition. Plan - Discharge Summary Discharge Rx Participant: Yes New Discharge Prescriptions: New Ibuprofen [Motrin] 600 mg PO Q6HR PRN #30 tab PRN Reason: Pain HYDROcodone/APAP 5-325MG [[place] 5-325] 1 tab PO Q4HR PRN #30 tab PRN Reason: Pain No Action Acetaminophen Tab [Tylenol] 1 tab PO Q6H PRN PRN Reason: Pain Ibuprofen [Motrin] 600 mg PO Q6HR PRN #30 tab PRN Reason: Mild Pain Or Fever >= 100.5 Multivitamins, Thera [Multivitamin (formulary)] 1 tab PO DAILY Albuterol Sulfate [Ventolin HFA] 1 - 2 puff INHALATION Q6H PRN PRN Reason: Shortness Of Breath Or Wheezing Discharge Medication List Acetaminophen Tab [Tylenol] 1 tab PO Q6H PRN 08/11/18 [History] Ibuprofen [Motrin] 600 mg PO Q6HR PRN #30 tab 11/21/18 [Rx] Albuterol Sulfate [Ventolin HFA] 1 - 2 puff INHALATION Q6H PRN 02/25/19 [History] Multivitamins, Thera [Multivitamin (formulary)] 1 tab PO DAILY 02/25/19 [History] HYDROcodone/APAP 5-325MG [[place] 5-325] 1 tab PO Q4HR PRN #30 tab 02/27/19 [Rx] Ibuprofen [Motrin] 600 mg PO Q6HR PRN #30 tab 02/27/19 [Rx] Follow up Appointment(s)/Referral(s): David Bueno DO [Doctor of Osteopathic Medicine] - 2 Weeks Activity/Diet/Wound Care/Special Instructions: No heavy lifting, limit stairs and driving, and pelvic rest. If any high temperatures, heavy bleeding, or severe pain call my office or report to the emergency room Discharge Disposition: HOME SELF-CARE
[2019-02-27] MEDS: HYDROmorphone 0.5 MG/0.5 ML SYRINGE IVP PRN ×3 (08:25→08:33)
[2019-02-27] MEDS: MEPERIDINE 50 MG/ML SYRINGE IVP ONE ×2 (08:39→08:48)
[2019-02-27 09:11] VITALS: BP 121/84; PULSE 62; RESP 16
[2019-02-27] MEDS ORDERED: HYDROcodone/APAP 5-325MG 1 EACH TAB PO ONE (09:29)
== END 2019-02-27 11:20 | disposition home or self-care (01) ==
LOC: OR 06:25
PROVIDERS: ATTEND Obstetrics & Gynecology
DX: Z30.2 Encounter for sterilization (principal); G43.909 Migraine, unspecified, not intractable, without status migrainosus; J45.909 Unspecified asthma, uncomplicated; Z87.891 Personal history of nicotine dependence; Z98.890 Other specified postprocedural states; Z82.49 Family history of ischemic heart disease and other diseases of the circulatory system; Z80.9 Family history of malignant neoplasm, unspecified; Z91.030 Bee allergy status
CPT/HCPCS: 81025; 58671; J2250; J1100; J2175; J2405; J3010; J1885; J0330; J2704; J1170

== ENCOUNTER 2019-12-16 09:30 | Emergency (ER) | payer OTHER ==
[2019-12-16] MEDS ORDERED: KETOROLAC 15 MG/ML 1 ML VIAL IVP STA (10:18)
[2019-12-16] MEDS ORDERED: IPRATROPIUM-ALBUTEROL 3 ML NEB INHALATION STA (10:37)
[2019-12-16 11:04] VITALS: RESP 18
[2019-12-16 11:19] LABS: ALT 22 U/L (4-34); AST 33 U/L (14-36); African American GFR (CKD) >90 (>60 ml/min/1.73 sqM); Albumin 4.2 g/dL (3.5-5.0); Alkaline Phosphatase 57 U/L (38-126); Anion Gap 7 mmol/L; Basophils % (A) 0 %; Blood Urea Nitrogen 13 mg/dL (7-17); Calcium 9.4 mg/dL (8.4-10.2); Carbon Dioxide 22 mmol/L (22-30); Chloride 110 mmol/L (98-107); Eosinophils # (A) 0.3 k/uL (0-0.7); Eosinophils % (A) 4 %; Glucose 105 mg/dL (74-99); HCT 43.7 % (34.0-46.0); HGB 14.4 gm/dL (11.4-16.0); Lymphocytes # (A) 1.9 k/uL (1.0-4.8); Lymphocytes % (A) 31 %; MCH 27.7 pg (25.0-35.0); MCHC 32.9 g/dL (31.0-37.0); MCV 84.2 fL (80.0-100.0); Magnesium 1.9 mg/dL (1.6-2.3); Mean Platelet Volume 9.4; Monocytes # (A) 0.3 k/uL (0-1.0); Monocytes % (A) 5 %; Neutrophils # (A) 3.6 k/uL (1.3-7.7); Neutrophils % (A) 59 %; Non-African American GFR(CKD) >90 (>60 ml/min/1.73 sqM); Platelet Count 116 k/uL (150-450); Sodium 139 mmol/L (137-145); Total Bilirubin 0.5 mg/dL (0.2-1.3); Total Protein 7.3 g/dL (6.3-8.2); WBC 6.2 k/uL (3.8-10.6)
[2019-12-16 11:20] LABS: Potassium 4.4 mmol/L (3.5-5.1)
--- NOTE | 2019-12-16 11:21 | XR ---
EXAMINATION TYPE: XR chest 1V portable DATE OF EXAM: 12/16/2019 COMPARISON: NONE HISTORY: Chest pain ,cough,congestion. TECHNIQUE: Single frontal view of the chest is obtained. FINDINGS: Subsegmental changes at the right lung base. Left lung clear. Heart is normal. No pneumoth orax or pleural effusion. No overt failure. IMPRESSION: Right basilar atelectasis favored over pneumonia correlate clinically..
--- NOTE | 2019-12-16 11:38 | ED ---
General Adult HPI - General Chief complaint: ENT Stated complaint: CHEST PAIN FEVER Time Seen by Provider: 12/16/19 09:44 Source: patient, RN notes reviewed, old records reviewed Mode of arrival: ambulatory Limitations: no limitations - History of Present Illness Initial comments: 24-year-old female patient comes to ED for evaluation of cough congestion chest pain and waxing waning headaches. Symptoms have ongoing the last 4 days. Reports that she felt somewhat feverish yesterday. Denies any chance of being secondary tubal ligation. She does report that the pain in her chest as substernal and somewhat pleuritic in nature. She states that she has not been around many people recently. Systemic: Pt denies fatigue, fever/chills, rash. Pt denies weakness, night sweats, weight loss. Neuro: Pt denies headache, visual disturbances, syncope or pre-syncope. HEENT: Pt denies ocular discharge or irritation, otalgia, rhinorrhea, pharyngitis or notable lymphadenopathy. Cardiopulmonary: Pt denies heart palpitations, dyspnea on exertion. Abdominal/GI: Pt denies abdominal pain, n/v/d. : Pt denies dysuria, burning w/ urination, frequency/urgency. Denies new onset urinary or bowel incontinence. MSK: Pt denies myalgia, loss of strength or function in extremities. Neuro: Pt denies new onset weakness, paresthesias. - Related Data Home Medications Medication Instructions Recorded Confirmed Multivitamins, Thera [Multivitamin 1 tab PO DAILY 02/25/19 12/16/19 (formulary)] Ibuprofen [Motrin Ib] 200 mg PO Q8H PRN 12/16/19 12/16/19 Previous Rx's Medication Instructions Recorded Albuterol Inhaler [Ventolin Hfa 2 puff INHALATION RT-QID PRN #1 12/16/19 Inhaler] inhaler Azithromycin [Zithromax Z-pack (6 0 mg PO DIRECTED #6 tab 12/16/19 tabs)] Allergies Allergy/AdvReac Type Severity Reaction Status Date / Time bee venom protein (honey bee) Allergy Anaphylaxis Verified 12/16/19 09:51 Review of Systems ROS Statement: Those systems with pertinent positive or pertinent negative responses have been documented in the HPI. ROS Other: All systems not noted in ROS Statement are negative. Past Medical History Past Medical History: Asthma Additional Past Medical History / Comment(s): MIGRAINE HEADACHE , . History of Any Multi-Drug Resistant Organisms: None Reported Additional Past Surgical History / Comment(s): leep procedure , Past Anesthesia/Blood Transfusion Reactions: No Reported Reaction Past Psychological History: Anxiety, Depression Smoking Status: Never smoker Past Alcohol Use History: Rare Past Drug Use History: Marijuana - Past Family History Father History Unknown: Yes Mother Family Medical History: Cancer, Deep Vein Thrombosis (DVT) General Exam - General Exam Comments Initial Comments: Constitutional: NAD, AOX3, Pt has pleasant affect. HEENT: NC/AT, trachea midline, neck supple, no lymphadenopathy. External ears appear normal, without discharge. Mucous membranes moist. Eyes PERRLA, EOM intact. There is no scleral icterus. No pallor noted. Cardiopulmonary: RRR, no murmurs, rubs or gallops, no JVD noted. Lungs CTAB in anterior and posterior ponce. No peripheral edema. Abdominal exam: Abdomen soft and non-distended. Abdomen non-tender to palpation in all 4 quadrants. Bowel sounds active in LLQ. No hepatosplenomegaly. No ecchymosis Neuro: CN II-XII intact. No nuchal rigidity. No raccon eyes, no bustillos sign, no hemotympanum. No cervical spinal tenderness. MSK: No posterior calf tenderness bilaterally, homans sign negative bilaterally. Posterior tibialis and radial pulse +2 bilaterally. Sensation intact in upper and lower extremities. Full active ROM in upper and lower extremities, 5/5 stregnth. Limitations: no limitations Course Vital Signs 12/16/19 12/16/19 12/16/19 09:35 10:36 10:48 Temperature 97.9 F Pulse Rate 99 98 98 Respiratory 16 18 Rate Blood Pressure 114/74 124/75 O2 Sat by Pulse 93 L 96 Oximetry 12/16/19 12/16/19 12/16/19 10:57 11:00 12:00 Temperature Pulse Rate 85 85 85 Respiratory 18 Rate Blood Pressure 114/72 O2 Sat by Pulse 97 Oximetry Medical Decision Making - Medical Decision Making 24-year-old female patient presents to ED for evaluation of cough with some ches t pains and shortness of breath. Patient vital signs are stable, afebrile. Physical exam did not display acute pathology. Laboratory investigations were unremarkable d-dimer negative. EKG nonischemic. Patient is not hypoxic and her pulse ox 9800%. Patient was improved after breathing treatment. Chest x-ray revealed some atelectasis possible pneumonia with clinical correlation and will place patient on azithromycin. Patient will be discharged with an inhaler as well. Patient administered rhinovirus. I emphasized self quarantined until results. Return with any worsening symptoms. Case discussed with Dr. Ray. - Lab Data Result diagrams: 12/16/19 11:02 12/16/19 11:02 Lab Results 12/16/19 12/16/19 12/16/19 Range/Units 11:02 11:02 11:02 WBC 6.2 (3.8-10.6) k/uL RBC 5.20 (3.80-5.40) m/uL Hgb 14.4 (11.4-16.0) gm/dL Hct 43.7 (34.0-46.0) % MCV 84.2 (80.0-100.0) fL MCH 27.7 (25.0-35.0) pg MCHC 32.9 (31.0-37.0) g/dL RDW 12.0 (11.5-15.5) % Plt Count 116 L (150-450) k/uL Neutrophils % 59 % Lymphocytes % 31 % Monocytes % 5 % Eosinophils % 4 % Basophils % 0 % Neutrophils # 3.6 (1.3-7.7) k/uL Lymphocytes # 1.9 (1.0-4.8) k/uL Monocytes # 0.3 (0-1.0) k/uL Eosinophils # 0.3 (0-0.7) k/uL Basophils # 0.0 (0-0.2) k/uL D-Dimer <0.17 (<0.60) mg/L FEU Sodium 139 (137-145) mmol/L Potassium 4.4 (3.5-5.1) mmol/L Chloride 110 H (98-107) mmol/L Carbon Dioxide 22 (22-30) mmol/L Anion Gap 7 mmol/L BUN 13 (7-17) mg/dL Creatinine 0.65 (0.52-1.04) mg/dL Est GFR (CKD-EPI)AfAm >90 (>60 ml/min/1.73 sqM) Est GFR (CKD-EPI)NonAf >90 (>60 ml/min/1.73 sqM) Glucose 105 H (74-99) mg/dL Calcium 9.4 (8.4-10.2) mg/dL Magnesium 1.9 (1.6-2.3) mg/dL Total Bilirubin 0.5 (0.2-1.3) mg/dL AST 33 (14-36) U/L ALT 22 (4-34) U/L Alkaline Phosphatase 57 (38-126) U/L Troponin I (0.000-0.034) ng/mL Total Protein 7.3 (6.3-8.2) g/dL Albumin 4.2 (3.5-5.0) g/dL 12/16/19 Range/Units 11:02 WBC (3.8-10.6) k/uL RBC (3.80-5.40) m/uL Hgb (11.4-16.0) gm/dL Hct (34.0-46.0) % MCV (80.0-100.0) fL MCH (25.0-35.0) pg MCHC (31.0-37.0) g/dL RDW (11.5-15.5) % Plt Count (150-450) k/uL Neutrophils % % Lymphocytes % % Monocytes % % Eosinophils % % Basophils % % Neutrophils # (1.3-7.7) k/uL Lymphocytes # (1.0-4.8) k/uL Monocytes # (0-1.0) k/uL Eosinophils # (0-0.7) k/uL Basophils # (0-0.2) k/uL D-Dimer (<0.60) mg/L FEU Sodium (137-145) mmol/L Potassium (3.5-5.1) mmol/L Chloride (98-107) mmol/L Carbon Dioxide (22-30) mmol/L Anion Gap mmol/L BUN (7-17) mg/dL Creatinine (0.52-1.04) mg/dL Est GFR (CKD-EPI)AfAm (>60 ml/min/1.73 sqM) Est GFR (CKD-EPI)NonAf (>60 ml/min/1.73 sqM) Glucose (74-99) mg/dL Calcium (8.4-10.2) mg/dL Magnesium (1.6-2.3) mg/dL Total Bilirubin (0.2-1.3) mg/dL AST (14-36) U/L ALT (4-34) U/L Alkaline Phosphatase (38-126) U/L Troponin I <0.012 (0.000-0.034) ng/mL Total Protein (6.3-8.2) g/dL Albumin (3.5-5.0) g/dL - EKG Data -: EKG Interpreted by Me (and Dr. Ray ) EKG Comments: ventricular rate 79, SD interval 148, QRS 94, QT/QTC 356/ 408. Normal sinus rhythm. No concern for acute ischemia this time. Disposition Clinical Impression: Cough Disposition: HOME SELF-CARE Condition: Stable Instructions (If sedation given, give patient instructions): Acute Cough (ED), Pleurisy (ED) Additional Instructions: Use inhaler as needed. Take antibiotics as directed. Follow-up with primary care provider tomorrow. Self quarantine until coronavirus results. Return to ER if any worsening symptoms. Prescriptions: Albuterol Inhaler [Ventolin Hfa Inhaler] 2 puff INHALATION RT-QID PRN #1 inhaler PRN Reason: Shortness Of Breath Or Wheezing Azithromycin [Zithromax Z-pack (6 tabs)] 0 mg PO DIRECTED #6 tab Is patient prescribed a controlled substance at d/c from ED?: No Referrals: None,Stated [Primary Care Provider] - 1-2 days
[2019-12-16] MEDS ORDERED: SODIUM CHLORIDE 0.9% 500 ML 500 ML IV ONE (11:51)
[2019-12-16] MEDS ORDERED: AZITHROMYCIN 500 MG TAB PO STA (11:59)
[2019-12-16 13:00] VITALS: BP 116/72; PULSE 91; TEMP 97.6
== END 2019-12-16 13:00 | disposition home or self-care (01) ==
LOC: EC 09:30
DX: R05 Cough (principal); R07.9 Chest pain, unspecified; J98.11 Atelectasis; Z91.030 Bee allergy status; Z98.51 Tubal ligation status; Z20.828 Contact with and (suspected) exposure to other viral communicable diseases
CPT/HCPCS: 36415; 94640; 93005; 85379; 80053; 83735; 84484; 85025; 71045; 99285; 96374; 96361; U0003; J1885

== ENCOUNTER 2021-07-30 07:22 | Emergency (ER) | payer OTHER ==
[2021-07-30 07:27] VITALS: BP 119/75; PULSE 95; TEMP 98.7
[2021-07-30] MEDS ORDERED: methylPREDNISolone SOD SUCCI 125 MG/2 ML VIAL IV STA (07:38)
[2021-07-30] MEDS ORDERED: SODIUM CHLORIDE 0.9% 500 ML 500 ML IV STA (07:38)
[2021-07-30] MEDS ORDERED: FAMOTIDINE 20 MG/2 ML VIAL IV STA (07:38)
[2021-07-30] MEDS ORDERED: diphenhydrAMINE 50 MG/ML 1 ML VIAL IVP STA (07:38)
--- NOTE | 2021-07-30 07:41 | ED ---
Allergic Reaction HPI - General Chief complaint: Allergic Reaction Stated complaint: Allergic Reaction Time Seen by Provider: 07/30/21 07:29 Source: patient, RN notes reviewed, old records reviewed Mode of arrival: ambulatory Limitations: no limitations - History of Present Illness Initial Comments: On her arms, chest, back and face. Patient came in for evaluation. She denies any new products, body wash. She states she started Effexor about 2 months ago and also takes hydralazine at night time. Patient did recently finish a course of amoxicillin 2 days ago for an ear infection. Patient states about a month ago she had a similar episode but only had a rash and swelling around her eyes, that went away after about 3 days. Patient did take a single dose of Benadryl, 25 mg just prior to arrival with no improvement. She denies any chest pain or shortness of breath, she does have history of mild asthma but denies any wheezing. Patient denies any fevers or chills, no abdominal pain, no nausea or vomiting. She has no further complaints. Patient denies being . - Related Data Home Medications Medication Instructions Recorded Confirmed Multivitamins, Thera [Multivitamin 1 tab PO DAILY 02/25/19 12/16/19 (formulary)] Ibuprofen [Motrin Ib] 200 mg PO Q8H PRN 12/16/19 12/16/19 Previous Rx's Medication Instructions Recorded Albuterol Inhaler [Ventolin Hfa 2 puff INHALATION RT-QID PRN #1 12/16/19 Inhaler] inhaler Azithromycin [Zithromax Z-pack (6 0 mg PO DIRECTED #6 tab 12/16/19 tabs)] predniSONE 50 mg PO DAILY #5 tab 07/30/21 Allergies Allergy/AdvReac Type Severity Reaction Status Date / Time bee venom protein (honey bee) Allergy Anaphylaxis Verified 07/30/21 07:27 Review of Systems ROS Statement: Those systems with pertinent positive or pertinent negative responses have been documented in the HPI. ROS Other: All systems not noted in ROS Statement are negative. Past Medical History Past Medical History: Asthma Additional Past Medical History / Comment(s): MIGRAINE HEADACHE , . History of Any Multi-Drug Resistant Organisms: None Reported Additional Past Surgical History / Comment(s): leep procedure , Past Anesthesia/Blood Transfusion Reactions: No Reported Reaction Past Psychological History: Anxiety, Depression Smoking Status: Never smoker Past Alcohol Use History: Rare Past Drug Use History: Marijuana - Past Family History Father History Unknown: Yes Mother Family Medical History: Cancer, Deep Vein Thrombosis (DVT) General Exam - General Exam Comments Initial Comments: GENERAL: Patient is well-developed and well-nourished. Patient is nontoxic and in no acute distress. HEAD: Atraumatic, normocephalic. EYES: Pupils equal round and reactive to light, extraocular movements intact, sclera anicteric, conjunctiva are normal. Eyelids were unremarkable. ENT: Nares patent, oropharynx clear without exudates. Moist mucous membranes. NECK: Normal range of motion, supple without lymphadenopathy or JVD. LUNGS: Unlabored respirations. Breath sounds clear to auscultation bilaterally and equal. No wheezes rales or rhonchi. HEART: Regular rate and rhythm without murmurs, rubs or gallops. ABDOMEN: Soft, nontender, normoactive bowel sounds. No guarding, no rebound. No masses appreciated. MUSCULOSKELETAL: Normal extremities with adequate strength and normal range of motion, no pitting or edema. No clubbing or cyanosis. NEUROLOGICAL: Patient is alert and oriented x 3. Normal speech, normal gait. PSYCH: Normal mood, normal affect. SKIN: Warm, Dry, normal turgor. Patient has multiple areas of erythematous patches consistent with hives, ALLERGIC response to her forearms, hands, chest, ears, back. Pruritic as well. Limitations: no limitations Course Vital Signs 07/30/21 07/30/21 07:24 07:42 Temperature 98.7 F Pulse Rate 95 Respiratory 18 16 Rate Blood Pressure 119/75 O2 Sat by Pulse 98 Oximetry Medical Decision Making - Medical Decision Making Patient is a 25-year-old female presenting with ALLERGIC reaction that started yesterday evening. She took 25 mg of Benadryl just prior to arrival with no improvement. No trouble breathing. Vital signs are stable. Patient was given IV dose of Benadryl, Pepcid, steroids and some fluids. Patient was reexamined about one hour later, hives has significantly improved. She states the itching is also improved. Patient is stable for discharge. I will continue her on steroids over the next few days. Patient is a follow-up with her PCP regarding possible ALLERGIES. She is agreeable and is stable for discharge. Return parameters were discussed. Disposition Clinical Impression: Allergic reaction Disposition: HOME SELF-CARE Condition: Stable Instructions (If sedation given, give patient instructions): Urticaria (ED) Additional Instructions: Please return to the Emergency Department if symptoms worsen or any other concerns. May continue with Benadryl every 4-6 hours as needed for itching, hives. Take steroids starting tomorrow. Follow-up with PCP regarding possible ALLERGIES. Prescriptions: predniSONE 50 mg PO DAILY #5 tab Is patient prescribed a controlled substance at d/c from ED?: No Referrals: None,Stated [REFERRING] - 1-2 days Time of Disposition: 08:51
[2021-07-30 07:43] VITALS: RESP 16
== END 2021-07-30 08:56 | disposition home or self-care (01) ==
LOC: EC 07:22
DX: T78.40XA Allergy, unspecified, initial encounter (principal); J45.909 Unspecified asthma, uncomplicated; Z91.030 Bee allergy status
CPT/HCPCS: 99283; 96374; 96375; 96361; J1200; J2930